=== PATIENT | female | born 1940 | race Caucasian/White ===

== ENCOUNTER 2021-03-18 11:35 | Inpatient (IN) | payer MEDICARE, SELFPAY ==
[2021-03-18 12:19] LABS: Hemoglobin 14.1 g/dL (12.0-16.0); Mean Corpuscular HGB CONC 33.6 g/dL (32.0-36.0); Mean Corpuscular Hemoglobin 30.5 pg (27.0-31.0); Mean Corpuscular Volume 90.9 fL (78.0-98.0); Mean Platelet Volume 7.2 fL (7.4-10.4); Platelet Count 189 thou/uL (130-400); RBC Distribution Width 12.2 % (11.5-14.5); Red Blood Cell (RBC) Count 4.61 mill/uL (4.20-5.40); White Blood Cell (WBC) Count 16.4 thou/uL (4.8-10.8)
[2021-03-18] MEDS ORDERED: Cefepime 2 GM VIAL ONE (12:25)
[2021-03-18 12:33] LABS: Band 21 % (5-11); Lymphocytes 3 % (21-51); MDiff Complete? YES; Monocytes 5 % (0-10); Neutrophil 70 % (42-75)
[2021-03-18 12:39] LABS: ALT (SGPT) 32 U/L (8-55); AST (SGOT) 81 U/L (5-34); Albumin 3.6 g/dL (3.4-4.8); Alkaline Phosphatase 60 U/L (40-110); Anion Gap 13 mmol/L (10-20); BUN (Urea Nitrogen) 16 mg/dL (9.8-20.1); Bilirubin, Total 1.2 mg/dL (0.2-1.2); Calc. Creatinine Clearance 0 mL/min (70-130); Carbon Dioxide 23 mmol/L (23-31); Chloride 100 mmol/L (98-107); Glucose 165 mg/dL (83-110); Potassium 3.3 mmol/L (3.5-5.1); Protein, Total 6.6 g/dL (5.8-8.1); Sodium 133 mmol/L (136-145)
[2021-03-18 12:56] LABS: Bacteria/HPF None Seen HPF (None Seen); Bilirubin Negative (Negative); Blood, Urine 2+ (Negative); Clarity Clear (Clear); Glucose, Urine (Dipstick) Normal (Negative); Ketone, Urine 20 mg/dL (Negative); Leukocyte Negative Leu/uL (Negative); Nitrite Negative (Negative); Protein, Urine (Dipstick) 100 mg/dL (Neg-Trace); RBC/HPF 0-3 HPF (0-3); Specific Gravity, Urine 1.032 (1.002-1.036); Squamous Epithelial 0-3 HPF (0-3); WBC/HPF 0-3 HPF (0-3); pH, Urine 5.5 (5.0-9.0)
[2021-03-18 13:14] LABS: CKMB 33.3 ng/mL (0-6.6)
[2021-03-18 13:35] LABS: SARS-CoV-2 NAA Rapid Test Not Detected (NotDetected)
[2021-03-18] MEDS ORDERED: Vancomycin 1 GM/200 ML BAG ONE ×2 (14:16→17:15)
[2021-03-18] MEDS ORDERED: Enoxaparin Sodium 30 MG/0.3 ML SYRINGE ONE (14:44)
[2021-03-18] MEDS ORDERED: Enoxaparin Sodium 100 MG/ML SYRINGE ONE (14:44)
[2021-03-18 15:36] LABS: Troponin I 18.342 ng/mL (< 0.028)
[2021-03-18] MEDS ORDERED: Potassium Chloride 20 MEQ TAB PO SCH (15:49)
[2021-03-18] MEDS ORDERED: Acetaminophen 650 MG Suppository PR PRN (15:49)
[2021-03-18] MEDS ORDERED: Acetaminophen 325 MG TAB PO PRN (15:49)
[2021-03-18] MEDS ORDERED: Vancomycin 1 GM in Premix Bag 1 BAG IVPB SCH ×2 (15:49→16:30)
[2021-03-18] MEDS ORDERED: Nitroglycerin 0.4 MG TAB (25 Tab Bottle) SL PRN (15:49)
[2021-03-18] MEDS ORDERED: Bisacodyl 5 MG TAB PO PRN (15:49)
[2021-03-18] MEDS ORDERED: Morphine 4 MG/ML VIAL SLOW IVP PRN (16:04)
[2021-03-18] MEDS ORDERED: Aspirin 325 mg Enteric Coated Tablet PO SCH (16:15)
[2021-03-18] MEDS ORDERED: Aspirin 325 MG TAB ONE (17:29)
[2021-03-18] MEDS ORDERED: Potassium Chloride 20 MEQ TAB ONE (17:29)
[2021-03-18 19:33] LABS: Critical Call Chem Troponin I RESULT DECREASING; Troponin I 14.908 ng/mL (< 0.028)
[2021-03-18 23:46] LABS: Amphetamine Not Detected (NotDetected); Barbiturates Screen Not Detected (NotDetected); Benzodiazepine Screen Not Detected (NotDetected); Cocaine Metabolite Screen Not Detected (NotDetected); Methadone Not Detected (NotDetected); Methamphetamine Not Detected (NotDetected); Opiate Screen Not Detected (NotDetected); Oxycodone Screen Not Detected (NotDetected); Phencyclidine (PCP) Not Detected (NotDetected); THC/Cannabinoid Screen Not Detected (NotDetected); Tricyclic Screen Not Detected (NotDetected)
[2021-03-19] MEDS: Cefepime 2 GM, Admixture Fee 1 EACH in Sodium Chloride 0.9% 100 ML IVPB SCH ×3 (00:28→23:37)
[2021-03-19 04:13] LABS: #Monocytes 0.8 thou/uL (0.11-0.59); #Neutrophils 8.7 thou/uL (1.40-6.50); %Basophils 0.4 % (0.0-1.0); %Eosinophils 0.2 % (0.0-10.0); %Lymphocytes 9.1 % (21.0-51.0); %Monocytes 7.2 % (0.0-10.0); %Neutrophils 83.1 % (42.0-75.0); Hemoglobin 14.1 g/dL (12.0-16.0); Mean Corpuscular HGB CONC 33.2 g/dL (32.0-36.0); Mean Corpuscular Hemoglobin 30.7 pg (27.0-31.0); Mean Corpuscular Volume 92.4 fL (78.0-98.0); Mean Platelet Volume 7.3 fL (7.4-10.4); Platelet Count 180 thou/uL (130-400); RBC Distribution Width 12.3 % (11.5-14.5); Red Blood Cell (RBC) Count 4.59 mill/uL (4.20-5.40); White Blood Cell (WBC) Count 10.5 thou/uL (4.8-10.8)
[2021-03-19 04:39] LABS: Anion Gap 10 mmol/L (10-20); BUN (Urea Nitrogen) 12 mg/dL (9.8-20.1); Calc. Creatinine Clearance 140 mL/min (70-130); Calcium 9.1 mg/dL (7.8-10.44); Carbon Dioxide 26 mmol/L (23-31); Cardiac Risk 4.2 (Less than 4.5); Chloride 104 mmol/L (98-107); Cholesterol 244 mg/dl (< 200 Desired); Glucose 99 mg/dL (83-110); HDL Cholesterol 58 mg/dL (>60 Neg Risk); LDL Cholesterol, Calculated 172 mg/dL; Potassium 3.6 mmol/L (3.5-5.1); Sodium 136 mmol/L (136-145); Triglycerides 69 mg/dL (Less than 150)
[2021-03-19] MEDS: Carvedilol 3.125 MG TAB PO SCH ×2 (08:48→17:49)
[2021-03-19] MEDS: Aspirin 325 mg Enteric Coated Tablet PO SCH (08:48)
[2021-03-19 09:29] LABS: Hemoglobin A1c 5.3 % (4.0-6.0)
[2021-03-19] MEDS ORDERED: Potassium Chloride 20 MEQ TAB PO SCH (09:45)
[2021-03-19] MEDS ORDERED: Furosemide 20 MG/2 ML VIAL SLOW IVP SCH (09:45)
[2021-03-19] MEDS ORDERED: Communication Order-Pharmacy FS SCH (10:00)
[2021-03-19] MEDS ORDERED: Digoxin 0.5 MG/2 ML AMP SLOW IVP SCH (16:45)
[2021-03-19] MEDS ORDERED: Diltiazem 125 MG in Sodium Chloride 0.9% 100 ML IVPB SCH (17:30)
[2021-03-19] MEDS: VANCOMYCIN 2 GRAM/400 ML BAG 2 GM in Premix Bag 1 BAG IVPB SCH (18:19)
[2021-03-19] MEDS: Atorvastatin Calcium 40 MG TAB PO SCH (22:11)
[2021-03-20] MEDS ORDERED: hydrOXYzine 25 MG TAB PO SCH (02:30)
[2021-03-20 04:59] LABS: #Basophils 0.1 thou/uL (0.0-0.2); #Eosinphils 0.2 thou/uL (0.0-0.7); #Lymphocytes 1.3 thou/uL (1.20-3.40); #Monocytes 0.8 thou/uL (0.11-0.59); #Neutrophils 6.1 thou/uL (1.40-6.50); %Basophils 0.8 % (0.0-1.0); %Eosinophils 2.1 % (0.0-10.0); %Lymphocytes 15.6 % (21.0-51.0); %Monocytes 9.6 % (0.0-10.0); %Neutrophils 71.9 % (42.0-75.0); Hemoglobin 14.2 g/dL (12.0-16.0); Mean Corpuscular HGB CONC 32.9 g/dL (32.0-36.0); Mean Corpuscular Hemoglobin 30.6 pg (27.0-31.0); Mean Corpuscular Volume 93.2 fL (78.0-98.0); Mean Platelet Volume 7.5 fL (7.4-10.4); Platelet Count 201 thou/uL (130-400); RBC Distribution Width 12.3 % (11.5-14.5); Red Blood Cell (RBC) Count 4.65 mill/uL (4.20-5.40); White Blood Cell (WBC) Count 8.5 thou/uL (4.8-10.8)
[2021-03-20 05:21] LABS: Anion Gap 13 mmol/L (10-20); BUN (Urea Nitrogen) 11 mg/dL (9.8-20.1); Calc. Creatinine Clearance 140 mL/min (70-130); Calcium 8.7 mg/dL (7.8-10.44); Carbon Dioxide 22 mmol/L (23-31); Chloride 104 mmol/L (98-107); Glucose 100 mg/dL (83-110); Magnesium 1.9 mg/dL (1.6-2.6); Potassium 3.6 mmol/L (3.5-5.1); Sodium 135 mmol/L (136-145)
[2021-03-20] MEDS: Carvedilol 3.125 MG TAB PO SCH ×2 (05:51→17:41)
[2021-03-20] MEDS: Aspirin 325 mg Enteric Coated Tablet PO SCH (05:51)
[2021-03-20] MEDS ORDERED: Sodium Chloride 0.9% 1,000 ML IV SCH ×2 (06:00→09:36)
[2021-03-20] MEDS ORDERED: Heparin 10,000 UNITS/ 10 ML VIAL ONE (07:40)
[2021-03-20] MEDS ORDERED: Midazolam HCl 2 mg/2 ml Vial ONE (08:41)
[2021-03-20] MEDS ORDERED: Fentanyl 100 MCG/2 ML VIAL ONE (08:41)
[2021-03-20] MEDS ORDERED: Protamine Sulfate 50 MG/5 ML VIAL ONE (09:06)
[2021-03-20] MEDS ORDERED: Iopamidol 370 76% 50 ML VIAL FS ONE (09:24)
[2021-03-20] MEDS ORDERED: Iopamidol 370 76% 100 ML VIAL ONE (09:24)
[2021-03-20] MEDS ORDERED: Sodium Chloride 0.9% 200 ML IV PRN (09:35)
[2021-03-20] MEDS ORDERED: Nitroglycerin 0.4 MG TAB (25 Tab Bottle) SL PRN (09:35)
[2021-03-20] MEDS ORDERED: Amiodarone 150 MG in Dextrose 5% in Water 100 ML IVPB SCH (09:45)
[2021-03-20] MEDS: Cefepime 2 GM, Admixture Fee 1 EACH in Sodium Chloride 0.9% 100 ML IVPB SCH ×2 (10:44→21:22)
[2021-03-20] MEDS: Amiodarone 450 MG in Dextrose 5% in Water 250 ML IVPB SCH ×2 (10:44→18:27)
[2021-03-20] MEDS: Acetaminophen/Codeine 30-300mg Tablet PO PRN (11:10)
[2021-03-20] MEDS ORDERED: Morphine 4 MG/ML VIAL SLOW IVP PRN (12:48)
[2021-03-20] MEDS ORDERED: Morphine 2 MG/ML VIAL SLOW IVP SCH (13:00)
[2021-03-20] MEDS ORDERED: Morphine 4 MG/ML VIAL SLOW IVP SCH (13:15)
[2021-03-20 16:31] LABS: Vancomycin, Trough 7.6 ug/mL
[2021-03-20] MEDS: VANCOMYCIN 2 GRAM/400 ML BAG 2 GM in Premix Bag 1 BAG IVPB SCH (17:41)
[2021-03-20] MEDS: Vancomycin 1.5 GRAM/300 ML BAG 1.5 GM in Premix Bag 1 BAG IVPB SCH (18:27)
[2021-03-20] MEDS: Atorvastatin Calcium 40 MG TAB PO SCH (21:24)
[2021-03-21] MEDS: Cefepime 2 GM, Admixture Fee 1 EACH in Sodium Chloride 0.9% 100 ML IVPB SCH ×3 (00:23→23:52)
[2021-03-21 05:00] LABS: Anion Gap 12 mmol/L (10-20); BUN (Urea Nitrogen) 11 mg/dL (9.8-20.1); Calc. Creatinine Clearance 129 mL/min (70-130); Calcium 8.6 mg/dL (7.8-10.44); Carbon Dioxide 24 mmol/L (23-31); Chloride 101 mmol/L (98-107); Glucose 107 mg/dL (83-110); Potassium 3.7 mmol/L (3.5-5.1); Sodium 133 mmol/L (136-145)
[2021-03-21] MEDS: Vancomycin 1.5 GRAM/300 ML BAG 1.5 GM in Premix Bag 1 BAG IVPB SCH ×2 (07:07→18:58)
[2021-03-21] MEDS: Aspirin 325 mg Enteric Coated Tablet PO SCH (08:46)
[2021-03-21] MEDS: Amiodarone 450 MG in Dextrose 5% in Water 250 ML IVPB SCH ×2 (08:46→23:23)
[2021-03-21] MEDS: Carvedilol 3.125 MG TAB PO SCH ×2 (08:46→17:15)
[2021-03-21] MEDS ORDERED: Furosemide 20 MG/2 ML VIAL SLOW IVP SCH (09:15)
[2021-03-21] MEDS ORDERED: Potassium Chloride 20 MEQ TAB PO SCH (09:15)
[2021-03-21] MEDS: Furosemide 20 MG/2 ML VIAL SLOW IVP SCH (15:12)
[2021-03-21] MEDS: Atorvastatin Calcium 40 MG TAB PO SCH (20:10)
[2021-03-21 23:14] LABS: Vancomycin, Trough 34.3 ug/mL
[2021-03-22] MEDS: Vancomycin 1.5 GRAM/300 ML BAG 1.5 GM in Premix Bag 1 BAG IVPB SCH ×3 (02:10→10:50)
[2021-03-22 05:38] LABS: ALT (SGPT) 57 U/L (8-55); AST (SGOT) 69 U/L (5-34); Albumin 2.6 g/dL (3.4-4.8); Alkaline Phosphatase 103 U/L (40-110); Anion Gap 14 mmol/L (10-20); BUN (Urea Nitrogen) 10 mg/dL (9.8-20.1); Bilirubin, Total 0.7 mg/dL (0.2-1.2); Calc. Creatinine Clearance 132 mL/min (70-130); Calcium 7.8 mg/dL (7.8-10.44); Carbon Dioxide 21 mmol/L (23-31); Chloride 103 mmol/L (98-107); Globulin 2.9 g/dL (2.4-3.5); Glucose 112 mg/dL (83-110); Potassium 3.9 mmol/L (3.5-5.1); Protein, Total 5.5 g/dL (5.8-8.1); Sodium 134 mmol/L (136-145)
[2021-03-22] MEDS: Furosemide 20 MG/2 ML VIAL SLOW IVP SCH (05:49)
[2021-03-22] MEDS ORDERED: Potassium Chloride 20 MEQ TAB PO SCH (08:30)
[2021-03-22] MEDS: Enoxaparin Sodium 100 MG/ML SYRINGE SC SCH ×2 (08:49→20:39)
[2021-03-22] MEDS: Amiodarone 200 MG TAB PO SCH ×3 (08:50→20:39)
[2021-03-22] MEDS: Carvedilol 3.125 MG TAB PO SCH ×2 (08:50→15:55)
[2021-03-22] MEDS: Aspirin 81 mg Enteric Coated Tablet PO SCH (08:50)
[2021-03-22] MEDS ORDERED: Furosemide 20 MG/2 ML VIAL SLOW IVP SCH (09:00)
[2021-03-22 10:11] LABS: #Basophils 0.1 thou/uL (0.0-0.2); #Eosinphils 0.2 thou/uL (0.0-0.7); #Lymphocytes 1.4 thou/uL (1.20-3.40); #Monocytes 1.2 thou/uL (0.11-0.59); #Neutrophils 9.6 thou/uL (1.40-6.50); %Basophils 0.5 % (0.0-1.0); %Eosinophils 1.7 % (0.0-10.0); %Lymphocytes 11.2 % (21.0-51.0); %Monocytes 9.3 % (0.0-10.0); %Neutrophils 77.3 % (42.0-75.0); Hemoglobin 13.9 g/dL (12.0-16.0); Mean Corpuscular HGB CONC 31.3 g/dL (32.0-36.0); Mean Corpuscular Hemoglobin 28.7 pg (27.0-31.0); Mean Corpuscular Volume 91.7 fL (78.0-98.0); Mean Platelet Volume 7.3 fL (7.4-10.4); Platelet Count 264 thou/uL (130-400); RBC Distribution Width 12.2 % (11.5-14.5); Red Blood Cell (RBC) Count 4.83 mill/uL (4.20-5.40); White Blood Cell (WBC) Count 12.4 thou/uL (4.8-10.8)
[2021-03-22 10:25] LABS: Vancomycin, Trough 27.9 ug/mL
[2021-03-22] MEDS: Cefepime 2 GM, Admixture Fee 1 EACH in Sodium Chloride 0.9% 100 ML IVPB SCH (12:55)
[2021-03-22] MEDS: Furosemide 40 MG/4 ML VIAL SLOW IVP SCH (15:53)
[2021-03-22] MEDS: Potassium Chloride 20 MEQ TAB PO SCH (15:55)
[2021-03-22] MEDS: VANCOMYCIN 1.25 GM/250 ML BAG 1.25 GM in Premix Bag 1 BAG IVPB SCH (17:41)
[2021-03-22] MEDS ORDERED: Vancomycin 1.5 GRAM/300 ML BAG 1.5 GM in Premix Bag 1 BAG IVPB SCH (18:00)
[2021-03-22] MEDS: Atorvastatin Calcium 40 MG TAB PO SCH (20:39)
[2021-03-23] MEDS: Cefepime 2 GM, Admixture Fee 1 EACH in Sodium Chloride 0.9% 100 ML IVPB SCH ×2 (00:08→11:47)
[2021-03-23 04:53] LABS: #Basophils 0.1 thou/uL (0.0-0.2); #Eosinphils 0.2 thou/uL (0.0-0.7); #Lymphocytes 1.7 thou/uL (1.20-3.40); #Monocytes 1.3 thou/uL (0.11-0.59); %Basophils 0.5 % (0.0-1.0); %Lymphocytes 13.8 % (21.0-51.0); %Monocytes 10.2 % (0.0-10.0); %Neutrophils 73.6 % (42.0-75.0); Hemoglobin 13.6 g/dL (12.0-16.0); Mean Corpuscular HGB CONC 33.7 g/dL (32.0-36.0); Mean Corpuscular Hemoglobin 30.6 pg (27.0-31.0); Mean Corpuscular Volume 90.8 fL (78.0-98.0); Mean Platelet Volume 7.3 fL (7.4-10.4); Platelet Count 292 thou/uL (130-400); RBC Distribution Width 12.1 % (11.5-14.5); Red Blood Cell (RBC) Count 4.43 mill/uL (4.20-5.40); White Blood Cell (WBC) Count 12.2 thou/uL (4.8-10.8)
[2021-03-23 05:23] LABS: Anion Gap 10 mmol/L (10-20); BUN (Urea Nitrogen) 11 mg/dL (9.8-20.1); Calc. Creatinine Clearance 132 mL/min (70-130); Calcium 9.1 mg/dL (7.8-10.44); Carbon Dioxide 30 mmol/L (23-31); Chloride 98 mmol/L (98-107); Glucose 109 mg/dL (83-110); Potassium 3.2 mmol/L (3.5-5.1); Sodium 135 mmol/L (136-145)
[2021-03-23] MEDS: Furosemide 40 MG/4 ML VIAL SLOW IVP SCH ×2 (05:42→15:44)
[2021-03-23] MEDS: VANCOMYCIN 1.25 GM/250 ML BAG 1.25 GM in Premix Bag 1 BAG IVPB SCH ×2 (05:42→17:47)
[2021-03-23] MEDS: Enoxaparin Sodium 100 MG/ML SYRINGE SC SCH ×2 (09:39→19:54)
[2021-03-23] MEDS: Carvedilol 3.125 MG TAB PO SCH ×2 (09:40→15:45)
[2021-03-23] MEDS: Aspirin 81 mg Enteric Coated Tablet PO SCH (09:40)
[2021-03-23] MEDS: Lisinopril 5 MG TAB PO SCH (09:40)
[2021-03-23] MEDS: Amiodarone 200 MG TAB PO SCH ×2 (09:40→19:49)
[2021-03-23] MEDS: Potassium Chloride 20 MEQ TAB PO SCH ×2 (09:40→15:45)
[2021-03-23] MEDS ORDERED: Potassium Bicarbonate/Cit Ac 20 MEQ TAB PO SCH (18:45)
[2021-03-23] MEDS: Acetaminophen/Codeine 30-300mg Tablet PO PRN (19:49)
[2021-03-23] MEDS: Atorvastatin Calcium 40 MG TAB PO SCH (19:50)
[2021-03-24] MEDS: Cefepime 2 GM, Admixture Fee 1 EACH in Sodium Chloride 0.9% 100 ML IVPB SCH (00:50)
[2021-03-24] MEDS: Acetaminophen/Codeine 30-300mg Tablet PO PRN (01:59)
[2021-03-24 05:05] LABS: #Eosinphils 0.3 thou/uL (0.0-0.7); #Lymphocytes 1.5 thou/uL (1.20-3.40); %Basophils 0.2 % (0.0-1.0); %Eosinophils 3.7 % (0.0-10.0); %Monocytes 11.3 % (0.0-10.0); %Neutrophils 67.8 % (42.0-75.0); Hemoglobin 12.5 g/dL (12.0-16.0); Mean Corpuscular Hemoglobin 29.1 pg (27.0-31.0); Mean Corpuscular Volume 91.1 fL (78.0-98.0); Mean Platelet Volume 6.8 fL (7.4-10.4); Platelet Count 317 thou/uL (130-400); RBC Distribution Width 12.1 % (11.5-14.5); White Blood Cell (WBC) Count 8.9 thou/uL (4.8-10.8)
[2021-03-24 05:15] LABS: Vancomycin, Trough 21.2 ug/mL
[2021-03-24 05:18] LABS: Anion Gap 14 mmol/L (10-20); BUN (Urea Nitrogen) 12 mg/dL (9.8-20.1); Calc. Creatinine Clearance 122 mL/min (70-130); Calcium 8.8 mg/dL (7.8-10.44); Carbon Dioxide 26 mmol/L (23-31); Chloride 96 mmol/L (98-107); Glucose 98 mg/dL (83-110); Potassium 3.3 mmol/L (3.5-5.1); Sodium 133 mmol/L (136-145)
[2021-03-24] MEDS: Furosemide 40 MG/4 ML VIAL SLOW IVP SCH ×2 (05:52→13:53)
[2021-03-24] MEDS ORDERED: Vancomycin 1 GM in Premix Bag 1 BAG IVPB SCH (06:00)
[2021-03-24] MEDS: Enoxaparin Sodium 100 MG/ML SYRINGE SC SCH ×2 (08:43→20:19)
[2021-03-24] MEDS: Aspirin 81 mg Enteric Coated Tablet PO SCH (08:44)
[2021-03-24] MEDS: Lisinopril 5 MG TAB PO SCH (08:44)
[2021-03-24] MEDS: Potassium Chloride 20 MEQ TAB PO SCH ×2 (08:44→16:16)
[2021-03-24] MEDS: Carvedilol 3.125 MG TAB PO SCH ×2 (08:44→16:16)
[2021-03-24] MEDS: Amiodarone 200 MG TAB PO SCH ×2 (08:44→20:19)
[2021-03-24] MEDS ORDERED: Potassium Bicarbonate/Cit Ac 20 MEQ TAB PO SCH (09:00)
[2021-03-24] MEDS: Atorvastatin Calcium 40 MG TAB PO SCH (20:19)
[2021-03-25 05:21] LABS: #Eosinphils 0.4 thou/uL (0.0-0.7); #Lymphocytes 1.5 thou/uL (1.20-3.40); #Monocytes 1.1 thou/uL (0.11-0.59); #Neutrophils 4.5 thou/uL (1.40-6.50); %Basophils 0.4 % (0.0-1.0); %Eosinophils 4.8 % (0.0-10.0); %Lymphocytes 19.5 % (21.0-51.0); %Monocytes 14.1 % (0.0-10.0); %Neutrophils 61.2 % (42.0-75.0); Hemoglobin 13.2 g/dL (12.0-16.0); Mean Corpuscular HGB CONC 32.4 g/dL (32.0-36.0); Mean Corpuscular Hemoglobin 29.6 pg (27.0-31.0); Mean Corpuscular Volume 91.4 fL (78.0-98.0); Platelet Count 358 thou/uL (130-400); RBC Distribution Width 12.1 % (11.5-14.5); Red Blood Cell (RBC) Count 4.44 mill/uL (4.20-5.40); White Blood Cell (WBC) Count 7.4 thou/uL (4.8-10.8)
[2021-03-25 05:40] LABS: Anion Gap 13 mmol/L (10-20); BUN (Urea Nitrogen) 13 mg/dL (9.8-20.1); Calc. Creatinine Clearance 104 mL/min (70-130); Calcium 8.9 mg/dL (7.8-10.44); Carbon Dioxide 31 mmol/L (23-31); Chloride 94 mmol/L (98-107); Glucose 99 mg/dL (83-110); Potassium 4.1 mmol/L (3.5-5.1); Sodium 134 mmol/L (136-145)
[2021-03-25] MEDS: Furosemide 40 MG/4 ML VIAL SLOW IVP SCH ×2 (06:16→15:43)
[2021-03-25] MEDS: Potassium Chloride 20 MEQ TAB PO SCH ×2 (08:41→17:39)
[2021-03-25] MEDS: Aspirin 81 mg Enteric Coated Tablet PO SCH (08:41)
[2021-03-25] MEDS: Amiodarone 200 MG TAB PO SCH ×2 (08:42→19:54)
[2021-03-25] MEDS: Carvedilol 3.125 MG TAB PO SCH ×2 (08:42→17:38)
[2021-03-25] MEDS: Apixaban 5 MG TAB PO SCH ×2 (08:42→19:53)
[2021-03-25] MEDS: Lisinopril 5 MG TAB PO SCH (08:42)
[2021-03-25] MEDS: Acetaminophen/Codeine 30-300mg Tablet PO PRN ×2 (12:55→19:51)
[2021-03-25] MEDS: Atorvastatin Calcium 40 MG TAB PO SCH (19:53)
[2021-03-25] MEDS: Doxycycline 100 MG CAP PO SCH (22:40)
[2021-03-26 04:52] LABS: #Eosinphils 0.3 thou/uL (0.0-0.7); #Lymphocytes 1.3 thou/uL (1.20-3.40); #Monocytes 1.1 thou/uL (0.11-0.59); #Neutrophils 5.5 thou/uL (1.40-6.50); %Basophils 0.6 % (0.0-1.0); %Lymphocytes 15.5 % (21.0-51.0); %Monocytes 13.7 % (0.0-10.0); %Neutrophils 66.3 % (42.0-75.0); Hemoglobin 13.4 g/dL (12.0-16.0); Mean Corpuscular HGB CONC 31.9 g/dL (32.0-36.0); Mean Corpuscular Hemoglobin 29.5 pg (27.0-31.0); Mean Corpuscular Volume 92.4 fL (78.0-98.0); Mean Platelet Volume 6.8 fL (7.4-10.4); Platelet Count 355 thou/uL (130-400); RBC Distribution Width 12.1 % (11.5-14.5); Red Blood Cell (RBC) Count 4.53 mill/uL (4.20-5.40); White Blood Cell (WBC) Count 8.2 thou/uL (4.8-10.8)
[2021-03-26 05:12] LABS: Anion Gap 15 mmol/L (10-20); BUN (Urea Nitrogen) 17 mg/dL (9.8-20.1); Calc. Creatinine Clearance 98 mL/min (70-130); Calcium 9.1 mg/dL (7.8-10.44); Carbon Dioxide 29 mmol/L (23-31); Chloride 94 mmol/L (98-107); Glucose 95 mg/dL (83-110); Potassium 3.9 mmol/L (3.5-5.1); Sodium 134 mmol/L (136-145)
[2021-03-26] MEDS: Furosemide 40 MG/4 ML VIAL SLOW IVP SCH (05:26)
[2021-03-26] MEDS: Amiodarone 200 MG TAB PO SCH ×2 (10:03→21:34)
[2021-03-26] MEDS: Apixaban 5 MG TAB PO SCH ×2 (10:03→21:34)
[2021-03-26] MEDS: Ondansetron PF 4 MG/2 ML Vial IVP PRN ×2 (10:03→22:14)
[2021-03-26] MEDS: Lisinopril 5 MG TAB PO SCH (10:04)
[2021-03-26] MEDS: Potassium Chloride 20 MEQ TAB PO SCH ×2 (10:04→18:30)
[2021-03-26] MEDS: Carvedilol 3.125 MG TAB PO SCH ×2 (10:04→18:30)
[2021-03-26] MEDS: Aspirin 81 mg Enteric Coated Tablet PO SCH (10:04)
[2021-03-26] MEDS: Doxycycline 100 MG CAP PO SCH (10:05)
[2021-03-26 15:29] LABS: Lactic Acid 1.1 mmol/L (0.5-2.2)
[2021-03-26 15:36] LABS: Troponin I 0.224 ng/mL (< 0.028)
[2021-03-26] MEDS: Furosemide 40 MG TAB PO SCH (16:18)
[2021-03-26] MEDS: Cefepime 2 GM in Sodium Chloride 0.9% 100 ML IVPB SCH (18:30)
[2021-03-26] MEDS ORDERED: Polyethylene Glycol 3350 17 GM Packet PO SCH (19:30)
[2021-03-26] MEDS: Atorvastatin Calcium 40 MG TAB PO SCH (21:34)
[2021-03-26] MEDS: Vancomycin 1 GM in Premix Bag 1 BAG IVPB SCH (21:35)
[2021-03-27] MEDS: Cefepime 2 GM in Sodium Chloride 0.9% 100 ML IVPB SCH ×2 (05:24→17:41)
[2021-03-27] MEDS: Acetaminophen/Codeine 30-300mg Tablet PO PRN ×2 (05:46→20:40)
[2021-03-27] MEDS: Vancomycin 1 GM in Premix Bag 1 BAG IVPB SCH ×2 (05:47→18:18)
[2021-03-27 07:21] LABS: #Eosinphils 0.3 thou/uL (0.0-0.7); #Lymphocytes 1.1 thou/uL (1.20-3.40); #Monocytes 1.2 thou/uL (0.11-0.59); #Neutrophils 10.2 thou/uL (1.40-6.50); %Basophils 0.2 % (0.0-1.0); %Eosinophils 2.5 % (0.0-10.0); %Lymphocytes 8.2 % (21.0-51.0); %Monocytes 9.4 % (0.0-10.0); %Neutrophils 79.7 % (42.0-75.0); Hemoglobin 14.1 g/dL (12.0-16.0); Mean Corpuscular HGB CONC 32.6 g/dL (32.0-36.0); Mean Corpuscular Volume 92.2 fL (78.0-98.0); Mean Platelet Volume 6.9 fL (7.4-10.4); Platelet Count 378 thou/uL (130-400); RBC Distribution Width 12.4 % (11.5-14.5); Red Blood Cell (RBC) Count 4.71 mill/uL (4.20-5.40); White Blood Cell (WBC) Count 12.8 thou/uL (4.8-10.8)
[2021-03-27 07:41] LABS: Lactic Acid 1.3 mmol/L (0.5-2.2)
[2021-03-27 07:45] LABS: Anion Gap 16 mmol/L (10-20); BUN (Urea Nitrogen) 25 mg/dL (9.8-20.1); Calc. Creatinine Clearance 70 mL/min (70-130); Calcium 9.7 mg/dL (7.8-10.44); Carbon Dioxide 27 mmol/L (23-31); Chloride 93 mmol/L (98-107); Glucose 117 mg/dL (83-110); Potassium 4.9 mmol/L (3.5-5.1); Sodium 131 mmol/L (136-145)
[2021-03-27] MEDS: Furosemide 40 MG TAB PO SCH (08:41)
[2021-03-27] MEDS: Amiodarone 200 MG TAB PO SCH ×2 (08:41→20:41)
[2021-03-27] MEDS: Aspirin 81 mg Enteric Coated Tablet PO SCH (08:41)
[2021-03-27] MEDS: Carvedilol 3.125 MG TAB PO SCH ×2 (08:41→17:41)
[2021-03-27] MEDS: Potassium Chloride 20 MEQ TAB PO SCH ×2 (08:41→17:41)
[2021-03-27] MEDS: Apixaban 5 MG TAB PO SCH ×2 (08:41→20:41)
[2021-03-27] MEDS: Lisinopril 5 MG TAB PO SCH (08:42)
[2021-03-27] MEDS: Polyethylene Glycol 3350 17 GM Packet PO SCH ×2 (08:42→15:21)
[2021-03-27] MEDS ORDERED: Lactated Ringer's 1,000 ML IV SCH (10:30)
[2021-03-27 12:07] LABS: RBC/HPF 0-3 HPF (0-3)
[2021-03-27 12:08] LABS: Bacteria/HPF 1+ HPF (None Seen)
[2021-03-27 14:40] LABS: SARS-CoV-2 PCR by NAA Not Detected (NotDetected)
[2021-03-27 14:46] LABS: Bilirubin Small (Negative); Blood, Urine Negative (Negative); Glucose, Urine (Dipstick) Negative (Negative); Ketone, Urine Negative (Negative); Leukocyte Negative (Negative); Nitrite Negative (Negative); Protein, Urine (Dipstick) Trace mg/dL (Neg-Trace)
[2021-03-27 14:54] LABS: Clarity Cloudy (Clear); Specific Gravity, Urine 1.024 (1.002-1.036)
[2021-03-27] MEDS: Atorvastatin Calcium 40 MG TAB PO SCH (20:41)
[2021-03-27] MEDS: Clindamycin/D5W 600 MG in Premix Bag 1 BAG IVPB SCH (22:24)
[2021-03-28 04:41] LABS: #Eosinphils 0.6 thou/uL (0.0-0.7); #Lymphocytes 1.5 thou/uL (1.20-3.40); #Monocytes 1.3 thou/uL (0.11-0.59); #Neutrophils 10.3 thou/uL (1.40-6.50); %Basophils 0.2 % (0.0-1.0); %Eosinophils 4.7 % (0.0-10.0); %Lymphocytes 10.6 % (21.0-51.0); %Monocytes 9.4 % (0.0-10.0); %Neutrophils 75.2 % (42.0-75.0); Hemoglobin 12.6 g/dL (12.0-16.0); Mean Corpuscular HGB CONC 32.4 g/dL (32.0-36.0); Mean Corpuscular Volume 92.7 fL (78.0-98.0); Mean Platelet Volume 6.6 fL (7.4-10.4); Platelet Count 340 thou/uL (130-400); RBC Distribution Width 12.4 % (11.5-14.5); Red Blood Cell (RBC) Count 4.21 mill/uL (4.20-5.40); White Blood Cell (WBC) Count 13.7 thou/uL (4.8-10.8)
[2021-03-28 05:09] LABS: Anion Gap 15 mmol/L (10-20); BUN (Urea Nitrogen) 31 mg/dL (9.8-20.1); Calc. Creatinine Clearance 57 mL/min (70-130); Calcium 9.2 mg/dL (7.8-10.44); Carbon Dioxide 26 mmol/L (23-31); Chloride 93 mmol/L (98-107); Glucose 92 mg/dL (83-110); Sodium 129 mmol/L (136-145)
[2021-03-28] MEDS: Cefepime 2 GM in Sodium Chloride 0.9% 100 ML IVPB SCH ×2 (05:27→16:47)
[2021-03-28 05:34] LABS: Vancomycin, Trough 26.3 ug/mL
[2021-03-28] MEDS ORDERED: Sodium Chloride 0.9% 500 ML IV SCH (05:45)
[2021-03-28] MEDS: Clindamycin/D5W 600 MG in Premix Bag 1 BAG IVPB SCH ×3 (06:03→20:48)
[2021-03-28] MEDS: Aspirin 81 mg Enteric Coated Tablet PO SCH (09:28)
[2021-03-28] MEDS: Polyethylene Glycol 3350 17 GM Packet PO SCH (09:28)
[2021-03-28] MEDS: Potassium Chloride 20 MEQ TAB PO SCH (09:28)
[2021-03-28] MEDS: Carvedilol 3.125 MG TAB PO SCH ×3 (09:29→16:49)
[2021-03-28] MEDS: Amiodarone 200 MG TAB PO SCH ×2 (09:29→20:49)
[2021-03-28] MEDS: Apixaban 5 MG TAB PO SCH ×2 (09:29→20:49)
[2021-03-28 16:00] LABS: Anion Gap 12 mmol/L (10-20); BUN (Urea Nitrogen) 33 mg/dL (9.8-20.1); CK (CPK) 270 U/L (29-168); Calc. Creatinine Clearance 59 mL/min (70-130); Calcium 8.9 mg/dL (7.8-10.44); Carbon Dioxide 28 mmol/L (23-31); Chloride 94 mmol/L (98-107); Glucose 117 mg/dL (83-110); Potassium 5.3 mmol/L (3.5-5.1); Sodium 129 mmol/L (136-145)
[2021-03-28] MEDS: Albumin 25% 25 GM/100 ML BOT IVPB SCH ×2 (16:17→23:40)
[2021-03-28] MEDS ORDERED: VANCOMYCIN 1.75 GM/350 ML BAG 1.75 GM in Premix Bag 1 BAG IVPB SCH (18:00)
[2021-03-28] MEDS: Atorvastatin Calcium 40 MG TAB PO SCH (20:48)
[2021-03-28] MEDS: Ketoconazole 2% Cream 15 gm Tube TOP SCH (20:48)
[2021-03-28] MEDS: Senokot S 8.6-50 MG TAB PO SCH (20:49)
[2021-03-28] MEDS ORDERED: Polyethylene Glycol 3350 17 GM Packet PO SCH (21:00)
[2021-03-29] MEDS: Acetaminophen/Codeine 30-300mg Tablet PO PRN (03:16)
[2021-03-29 04:45] LABS: #Eosinphils 0.5 thou/uL (0.0-0.7); #Monocytes 1.1 thou/uL (0.11-0.59); #Neutrophils 11.2 thou/uL (1.40-6.50); %Basophils 0.1 % (0.0-1.0); %Lymphocytes 7.2 % (21.0-51.0); %Monocytes 7.9 % (0.0-10.0); %Neutrophils 80.8 % (42.0-75.0); Hemoglobin 11.1 g/dL (12.0-16.0); Mean Corpuscular HGB CONC 31.4 g/dL (32.0-36.0); Mean Corpuscular Hemoglobin 28.8 pg (27.0-31.0); Mean Corpuscular Volume 91.7 fL (78.0-98.0); Mean Platelet Volume 6.5 fL (7.4-10.4); Platelet Count 358 thou/uL (130-400); RBC Distribution Width 12.1 % (11.5-14.5); Red Blood Cell (RBC) Count 3.86 mill/uL (4.20-5.40); White Blood Cell (WBC) Count 13.9 thou/uL (4.8-10.8)
[2021-03-29 05:04] LABS: Anion Gap 14 mmol/L (10-20); BUN (Urea Nitrogen) 32 mg/dL (9.8-20.1); Calc. Creatinine Clearance 60 mL/min (70-130); Calcium 9.4 mg/dL (7.8-10.44); Carbon Dioxide 27 mmol/L (23-31); Chloride 94 mmol/L (98-107); Glucose 105 mg/dL (83-110); Potassium 4.9 mmol/L (3.5-5.1); Sodium 130 mmol/L (136-145)
[2021-03-29] MEDS: Cefepime 2 GM in Sodium Chloride 0.9% 100 ML IVPB SCH (05:45)
[2021-03-29] MEDS: Clindamycin/D5W 600 MG in Premix Bag 1 BAG IVPB SCH ×3 (06:31→22:06)
[2021-03-29] MEDS: Carvedilol 3.125 MG TAB PO SCH ×2 (08:33→17:13)
[2021-03-29] MEDS: Aspirin 81 mg Enteric Coated Tablet PO SCH (08:33)
[2021-03-29] MEDS: Amiodarone 200 MG TAB PO SCH ×2 (08:33→21:08)
[2021-03-29] MEDS: Bisacodyl 5 MG TAB PO SCH (08:34)
[2021-03-29] MEDS: Apixaban 5 MG TAB PO SCH ×2 (08:34→21:09)
[2021-03-29] MEDS: Senokot S 8.6-50 MG TAB PO SCH ×2 (08:34→21:09)
[2021-03-29] MEDS: Ketoconazole 2% Cream 15 gm Tube TOP SCH ×2 (08:35→21:11)
[2021-03-29] MEDS: Albumin 25% 25 GM/100 ML BOT IVPB SCH ×2 (13:17→17:54)
[2021-03-29 15:42] LABS: Creatinine, Urine 123.34 mg/dL (47-110)
[2021-03-29] MEDS: cefTRIAXone\\ROCEPHIN 2 GM in Sodium Chloride 0.9% 100 ML IVPB SCH (17:13)
[2021-03-29] MEDS: Atorvastatin Calcium 40 MG TAB PO SCH (21:09)
[2021-03-30] MEDS: Albumin 25% 25 GM/100 ML BOT IVPB SCH (00:11)
[2021-03-30] MEDS: Ondansetron PF 4 MG/2 ML Vial IVP PRN (03:08)
[2021-03-30] MEDS: Acetaminophen/Codeine 30-300mg Tablet PO PRN (03:08)
[2021-03-30 04:49] LABS: #Eosinphils 0.4 thou/uL (0.0-0.7); #Lymphocytes 1.2 thou/uL (1.20-3.40); #Monocytes 1.1 thou/uL (0.11-0.59); %Basophils 0.2 % (0.0-1.0); %Eosinophils 3.3 % (0.0-10.0); %Lymphocytes 9.6 % (21.0-51.0); %Monocytes 8.9 % (0.0-10.0); %Neutrophils 78.1 % (42.0-75.0); Hemoglobin 11.8 g/dL (12.0-16.0); Mean Corpuscular HGB CONC 33.2 g/dL (32.0-36.0); Mean Corpuscular Hemoglobin 29.9 pg (27.0-31.0); Mean Corpuscular Volume 90.2 fL (78.0-98.0); Mean Platelet Volume 6.5 fL (7.4-10.4); Platelet Count 349 thou/uL (130-400); RBC Distribution Width 12.1 % (11.5-14.5); Red Blood Cell (RBC) Count 3.95 mill/uL (4.20-5.40); White Blood Cell (WBC) Count 12.8 thou/uL (4.8-10.8)
[2021-03-30 05:04] LABS: Anion Gap 16 mmol/L (10-20); BUN (Urea Nitrogen) 35 mg/dL (9.8-20.1); Calc. Creatinine Clearance 61 mL/min (70-130); Calcium 9.4 mg/dL (7.8-10.44); Carbon Dioxide 22 mmol/L (23-31); Chloride 96 mmol/L (98-107); Glucose 97 mg/dL (83-110); Sodium 129 mmol/L (136-145)
[2021-03-30] MEDS: Clindamycin/D5W 600 MG in Premix Bag 1 BAG IVPB SCH ×3 (06:14→21:44)
[2021-03-30] MEDS ORDERED: Bisacodyl 10 MG SUPP PR PRN (06:36)
[2021-03-30] MEDS ORDERED: Sodium Chloride 0.9% 1,000 ML IV SCH (06:45)
[2021-03-30] MEDS: Sodium Chloride 0.9% 1,000 ML IV SCH ×2 (07:23→23:05)
[2021-03-30] MEDS: Apixaban 5 MG TAB PO SCH ×2 (10:02→21:41)
[2021-03-30] MEDS: Amiodarone 200 MG TAB PO SCH ×2 (10:02→21:41)
[2021-03-30] MEDS: Aspirin 81 mg Enteric Coated Tablet PO SCH (10:02)
[2021-03-30] MEDS: Carvedilol 3.125 MG TAB PO SCH ×2 (10:02→16:33)
[2021-03-30] MEDS: Ketoconazole 2% Cream 15 gm Tube TOP SCH ×2 (10:03→22:01)
[2021-03-30] MEDS: Bisacodyl 5 MG TAB PO SCH (10:04)
[2021-03-30] MEDS: Senokot S 8.6-50 MG TAB PO SCH ×2 (10:04→21:43)
[2021-03-30] MEDS: cefTRIAXone\\ROCEPHIN 2 GM in Sodium Chloride 0.9% 100 ML IVPB SCH (16:33)
[2021-03-30] MEDS: Atorvastatin Calcium 40 MG TAB PO SCH (21:41)
[2021-03-31] MEDS: Clindamycin/D5W 600 MG in Premix Bag 1 BAG IVPB SCH ×3 (05:32→21:28)
[2021-03-31 07:46] LABS: Anion Gap 15 mmol/L (10-20); BUN (Urea Nitrogen) 37 mg/dL (9.8-20.1); Calc. Creatinine Clearance 64 mL/min (70-130); Calcium 9.5 mg/dL (7.8-10.44); Carbon Dioxide 23 mmol/L (23-31); Chloride 98 mmol/L (98-107); Glucose 105 mg/dL (83-110); Potassium 5.4 mmol/L (3.5-5.1); Sodium 131 mmol/L (136-145)
[2021-03-31] MEDS: Apixaban 5 MG TAB PO SCH ×2 (09:52→21:27)
[2021-03-31] MEDS: Aspirin 81 mg Enteric Coated Tablet PO SCH (09:52)
[2021-03-31] MEDS: Amiodarone 200 MG TAB PO SCH ×2 (09:52→21:28)
[2021-03-31] MEDS: Bisacodyl 5 MG TAB PO SCH (09:53)
[2021-03-31] MEDS: Ketoconazole 2% Cream 15 gm Tube TOP SCH ×2 (09:53→21:31)
[2021-03-31] MEDS: Carvedilol 3.125 MG TAB PO SCH ×2 (09:53→17:29)
[2021-03-31] MEDS: Senokot S 8.6-50 MG TAB PO SCH ×2 (09:58→21:28)
[2021-03-31] MEDS: Bisacodyl 10 MG SUPP PR SCH ×2 (09:59→10:14)
[2021-03-31] MEDS: Ondansetron PF 4 MG/2 ML Vial IVP PRN (10:14)
[2021-03-31] MEDS ORDERED: cefTRIAXone\\ROCEPHIN 1 GM in Sodium Chloride 0.9% 100 ML IVPB SCH (18:00)
[2021-03-31] MEDS: Atorvastatin Calcium 40 MG TAB PO SCH (21:27)
[2021-03-31] MEDS: Sodium Chloride 0.9% 1,000 ML IV SCH (22:53)
[2021-04-01 05:40] LABS: Albumin 2.9 g/dL (3.4-4.8); Anion Gap 14 mmol/L (10-20); BUN (Urea Nitrogen) 35 mg/dL (9.8-20.1); BUN/Creatinine Ratio 26.32; Calc. Creatinine Clearance 71 mL/min (70-130); Calcium 9.1 mg/dL (7.8-10.44); Carbon Dioxide 23 mmol/L (23-31); Chloride 100 mmol/L (98-107); Glucose 94 mg/dL (83-110); Phosphorus 3.4 mg/dL (2.3-4.7); Potassium 4.2 mmol/L (3.5-5.1); Sodium 133 mmol/L (136-145)
[2021-04-01] MEDS: Clindamycin/D5W 600 MG in Premix Bag 1 BAG IVPB SCH (05:46)
[2021-04-01] MEDS: Amiodarone 200 MG TAB PO SCH ×2 (08:45→22:06)
[2021-04-01] MEDS: Senokot S 8.6-50 MG TAB PO SCH ×2 (08:45→22:06)
[2021-04-01] MEDS: Bisacodyl 5 MG TAB PO SCH (08:45)
[2021-04-01] MEDS: Apixaban 5 MG TAB PO SCH ×2 (08:45→22:06)
[2021-04-01] MEDS: Carvedilol 3.125 MG TAB PO SCH ×2 (08:45→17:59)
[2021-04-01] MEDS: Aspirin 81 mg Enteric Coated Tablet PO SCH (08:45)
[2021-04-01] MEDS: Ketoconazole 2% Cream 15 gm Tube TOP SCH ×2 (08:46→22:06)
[2021-04-01] MEDS ORDERED: Mineral Oil ENEMA PR SCH (11:45)
[2021-04-01] MEDS ORDERED: Fleet Enema 133 ML BOT PR SCH (17:45)
[2021-04-01] MEDS: Atorvastatin Calcium 40 MG TAB PO SCH (22:05)
[2021-04-02 05:15] LABS: Albumin 2.8 g/dL (3.4-4.8); Anion Gap 17 mmol/L (10-20); BUN (Urea Nitrogen) 33 mg/dL (9.8-20.1); Calc. Creatinine Clearance 75 mL/min (70-130); Calcium 9.6 mg/dL (7.8-10.44); Carbon Dioxide 22 mmol/L (23-31); Chloride 101 mmol/L (98-107); Glucose 95 mg/dL (83-110); Phosphorus 3.5 mg/dL (2.3-4.7); Potassium 4.3 mmol/L (3.5-5.1); Sodium 136 mmol/L (136-145)
[2021-04-02] MEDS: Amiodarone 200 MG TAB PO SCH ×2 (10:22→21:40)
[2021-04-02] MEDS: Aspirin 81 mg Enteric Coated Tablet PO SCH (10:22)
[2021-04-02] MEDS: Apixaban 5 MG TAB PO SCH ×2 (10:22→21:42)
[2021-04-02] MEDS: Bisacodyl 5 MG TAB PO SCH (10:22)
[2021-04-02] MEDS: Carvedilol 3.125 MG TAB PO SCH ×2 (10:23→17:51)
[2021-04-02] MEDS: Senokot S 8.6-50 MG TAB PO SCH ×2 (10:24→21:40)
[2021-04-02] MEDS: Ketoconazole 2% Cream 15 gm Tube TOP SCH ×2 (10:30→21:42)
[2021-04-02 15:11] VITALS: BMI 46.4
[2021-04-02 20:28] VITALS: BP 139/65; TEMP 98.3
[2021-04-02] MEDS: Atorvastatin Calcium 40 MG TAB PO SCH (21:40)
[2021-04-06] MEDS ORDERED: Amiodarone 200 MG TAB PO SCH (09:00)
[2021-04-20] MEDS ORDERED: Amiodarone 200 MG TAB PO SCH (09:00)
== END 2021-04-02 22:21 | DRG 280 ==
LOC: ERS 11:35 → ERHOLD 14:21 → 2NO 19:49
PROVIDERS: ADMIT Internal Medicine; ATTEND Internal Medicine
PROC: 4A023N7 Measurement of Cardiac Sampling and Pressure, Left Heart, Percutaneous Approach (ICD-10-PCS; principal; 2021-03-20)
PROC: B2151ZZ Fluoroscopy of Left Heart using Low Osmolar Contrast (ICD-10-PCS; 2021-03-20)
PROC: B2111ZZ Fluoroscopy of Multiple Coronary Arteries using Low Osmolar Contrast (ICD-10-PCS; 2021-03-20)
DX: I21.4 Non-ST elevation (NSTEMI) myocardial infarction (principal); A41.9 Sepsis, unspecified organism; E87.1 Hypo-osmolality and hyponatremia; M62.82 Rhabdomyolysis; L03.116 Cellulitis of left lower limb; I47.2 Ventricular tachycardia; Z68.42 Body mass index [BMI] 45.0-49.9, adult; N17.9 Acute kidney failure, unspecified; I50.42 Chronic combined systolic (congestive) and diastolic (congestive) heart failure; Z20.822 Contact with and (suspected) exposure to COVID-19; E87.6 Hypokalemia; E66.01 Morbid (severe) obesity due to excess calories; I11.0 Hypertensive heart disease with heart failure; E11.9 Type 2 diabetes mellitus without complications; I48.91 Unspecified atrial fibrillation; I25.10 Atherosclerotic heart disease of native coronary artery without angina pectoris; I89.0 Lymphedema, not elsewhere classified; I25.5 Ischemic cardiomyopathy; K59.00 Constipation, unspecified; B37.2 Candidiasis of skin and nail; Z90.09 Acquired absence of other part of head and neck; Z79.899 Other long term (current) drug therapy; Z88.0 Allergy status to penicillin
CPT/HCPCS: 0240U; 36415; 36416; 51701; 71045; 74018; 76770; 80048; 80053; 80061; 80069; 80202; 80306; 81003; 81015; 82040; 82550; 82553; 82570; 83036; 83605; 83735; 83880; 84156; 84300; 84443; 84484; 84540; 85025; 85347; 87040; 87086; 87633; 93005; 93010; 93306; 93458; 93798; 96365; 96367; 96372; 99152; J0282; J0692; J0696; J1160; J1644; J1650; J1940; J1956; J2250; J2270; J2405; J2720; J3010; J3370; J3490; J7030; J7050; J7070; P9047; Q9967; U0003; U0005

== ENCOUNTER 2021-09-19 14:36 | Outpatient (CLI) | payer MEDICARE | END 2021-09-19 14:37 | disposition home or self-care (01) | LOC: BICRAD 14:36 | PROVIDERS: ATTEND Internal Medicine Cardiovascular Disease | DX: I48.0 Paroxysmal atrial fibrillation (principal); I51.7 Cardiomegaly | CPT/HCPCS: 71046 ==

== ENCOUNTER 2022-05-22 15:10 | Inpatient (IN) | payer MEDICARE ==
[2022-05-22 16:38] LABS: #Eosinphils 0.3 thou/uL (0.0-0.7); #Lymphocytes 1.5 thou/uL (1.20-3.40); #Monocytes 0.6 thou/uL (0.11-0.59); #Neutrophils 5.4 thou/uL (1.40-6.50); %Basophils 0.2 % (0.0-1.0); %Eosinophils 4.5 % (0.0-10.0); %Lymphocytes 19.1 % (21.0-51.0); %Monocytes 7.3 % (0.0-10.0); Hemoglobin 12.5 g/dL (12.0-16.0); Mean Corpuscular HGB CONC 32.2 g/dL (32.0-36.0); Mean Corpuscular Volume 93.1 fl (78.0-98.0); Mean Platelet Volume 7.3 fL (7.4-10.4); Platelet Count 286 10x3/uL (130-400); RBC Distribution Width 13.1 % (11.5-14.5); Red Blood Cell (RBC) Count 4.17 mill/uL (4.20-5.40); White Blood Cell (WBC) Count 7.8 10x3/uL (4.8-10.8)
[2022-05-22 17:15] LABS: Albumin 3.7 g/dL (3.4-4.8); Alkaline Phosphatase 84 U/L (40-110); Anion Gap 21 mmol/L (10-20); BUN (Urea Nitrogen) 38 mg/dL (9.8-20.1); Bilirubin, Total 0.8 mg/dL (0.2-1.2); Calc. Creatinine Clearance 0 mL/min (70-130); Calcium 9.7 mg/dL (7.8-10.44); Carbon Dioxide 21 mmol/L (23-31); Chloride 101 mmol/L (98-107); Estimated GFR 35; Globulin 3.8 g/dL (2.4-3.5); Glucose 94 mg/dL (83-110); Potassium 3.8 mmol/L (3.5-5.1); Protein, Total 7.5 g/dL (5.8-8.1); Sodium 139 mmol/L (136-145)
[2022-05-22 17:16] LABS: ALT (SGPT) 19 U/L (8-55); AST (SGOT) 24 U/L (5-34)
[2022-05-22] MEDS ORDERED: Ondansetron PF 4 MG/2 ML Vial IVP PRN (18:47)
[2022-05-22 21:07] VITALS: BMI 48.8
[2022-05-22] MEDS: Apixaban 2.5 MG TAB PO SCH (22:15)
[2022-05-22] MEDS: Acetaminophen 325 MG TAB PO PRN (22:15)
[2022-05-22] MEDS: traMADol HCl 50 MG TAB PO PRN (22:15)
[2022-05-23] MEDS ORDERED: Morphine 2 MG/ML VIAL SLOW IVP SCH ×2 (01:15→04:30)
[2022-05-23 05:04] LABS: #Eosinphils 0.4 thou/uL (0.0-0.7); #Monocytes 0.6 thou/uL (0.11-0.59); #Neutrophils 4.8 thou/uL (1.40-6.50); %Basophils 0.5 % (0.0-1.0); %Eosinophils 4.8 % (0.0-10.0); %Lymphocytes 25.5 % (21.0-51.0); %Neutrophils 61.2 % (42.0-75.0); Mean Corpuscular HGB CONC 32.1 g/dL (32.0-36.0); Mean Corpuscular Volume 93.4 fl (78.0-98.0); Mean Platelet Volume 7.5 fL (7.4-10.4); Platelet Count 309 10x3/uL (130-400); RBC Distribution Width 13.2 % (11.5-14.5); White Blood Cell (WBC) Count 7.8 10x3/uL (4.8-10.8)
[2022-05-23 05:35] LABS: Anion Gap 15 mmol/L (10-20); BUN (Urea Nitrogen) 38 mg/dL (9.8-20.1); Calc. Creatinine Clearance 66 mL/min (70-130); Calcium 9.6 mg/dL (7.8-10.44); Carbon Dioxide 27 mmol/L (23-31); Chloride 100 mmol/L (98-107); Estimated GFR 36; Glucose 100 mg/dL (83-110); Potassium 3.7 mmol/L (3.5-5.1); Sodium 138 mmol/L (136-145)
[2022-05-23 09:01] LABS: Bacteria/HPF None Seen HPF (None Seen); Bilirubin Negative (Negative); Blood, Urine Negative (Negative); CAUTI Indications for Culture Dysuria,urgency,freq; Clarity Clear (Clear); Glucose, Urine (Dipstick) Normal (Negative); Ketone, Urine Negative (Negative); Leukocyte Negative Leu/uL (Negative); Nitrite Negative (Negative); Protein, Urine (Dipstick) Negative (Neg-Trace); RBC/HPF 0-3 HPF (0-3); Specific Gravity, Urine 1.017 (1.002-1.036); Urobilinogen Normal mg/dL (Less than 2); WBC/HPF 0-3 HPF (0-3)
[2022-05-23 09:02] LABS: Urine Culture Reflex No No
[2022-05-23 09:29] LABS: Creatinine, Urine 101.22 mg/dL (47-110); Protein, Urine Random Quant Less than 10 mg/dL (1-14); Sodium, Urine Less than 20 mmol/L (Not Available); Urea Nitrogen, Random Urine 765 mg/dl
[2022-05-23] MEDS: traMADol HCl 50 MG TAB PO PRN (09:52)
[2022-05-23] MEDS: Apixaban 2.5 MG TAB PO SCH ×2 (09:52→20:44)
[2022-05-23 14:24] LABS: Free T4 (Free Thyroxine) 2.14 ng/dL (0.70-1.48)
[2022-05-23] MEDS: Gabapentin 100 MG CAP PO SCH ×2 (15:21→20:44)
[2022-05-23] MEDS ORDERED: Nitroglycerin 0.4 MG TAB (25 Tab Bottle) SL PRN (17:27)
[2022-05-23] MEDS: Atorvastatin Calcium 40 MG TAB PO SCH (20:43)
[2022-05-23] MEDS ORDERED: Torsemide 20 MG TAB PO SCH (21:00)
[2022-05-23] MEDS ORDERED: Potassium Chloride 20 MEQ TAB PO SCH (21:00)
[2022-05-23] MEDS ORDERED: Apixaban 5 MG TAB PO SCH (21:00)
[2022-05-23] MEDS ORDERED: Gabapentin 100 MG CAP PO SCH (21:00)
[2022-05-24 04:45] LABS: Anion Gap 11 mmol/L (10-20); BUN (Urea Nitrogen) 21 mg/dL (9.8-20.1); Calc. Creatinine Clearance 101 mL/min (70-130); Calcium 9.2 mg/dL (7.8-10.44); Carbon Dioxide 28 mmol/L (23-31); Chloride 102 mmol/L (98-107); Estimated GFR 60; Glucose 115 mg/dL (83-110); Potassium 3.7 mmol/L (3.5-5.1); Sodium 137 mmol/L (136-145)
[2022-05-24 04:50] LABS: #Eosinphils 0.1 thou/uL (0.0-0.7); #Monocytes 0.6 thou/uL (0.11-0.59); #Neutrophils 5.5 thou/uL (1.40-6.50); %Basophils 0.3 % (0.0-1.0); %Eosinophils 1.6 % (0.0-10.0); %Lymphocytes 13.3 % (21.0-51.0); %Monocytes 8.9 % (0.0-10.0); %Neutrophils 75.8 % (42.0-75.0); Hemoglobin 13.9 g/dL (12.0-16.0); Mean Corpuscular HGB CONC 31.4 g/dL (32.0-36.0); Mean Corpuscular Hemoglobin 29.2 pg (27.0-31.0); Mean Platelet Volume 7.7 fL (7.4-10.4); Platelet Count 188 10x3/uL (130-400); RBC Distribution Width 13.3 % (11.5-14.5); Red Blood Cell (RBC) Count 4.78 mill/uL (4.20-5.40); White Blood Cell (WBC) Count 7.2 10x3/uL (4.8-10.8)
[2022-05-24] MEDS: Levothyroxine 150 MCG TAB PO SCH (05:45)
[2022-05-24] MEDS: Carvedilol 3.125 MG TAB PO SCH ×2 (09:05→17:28)
[2022-05-24] MEDS: Amiodarone 200 MG TAB PO SCH (09:05)
[2022-05-24] MEDS: Apixaban 2.5 MG TAB PO SCH ×2 (09:05→21:05)
[2022-05-24] MEDS: Gabapentin 100 MG CAP PO SCH ×3 (10:49→21:05)
[2022-05-24] MEDS: Furosemide 40 MG/4 ML VIAL SLOW IVP SCH (14:02)
[2022-05-24] MEDS: Potassium Chloride 20 MEQ TAB PO SCH (17:27)
[2022-05-24] MEDS: Atorvastatin Calcium 40 MG TAB PO SCH (21:04)
[2022-05-24] MEDS ORDERED: Ipratropium/Albuterol 3 ML NEB NEB SCH (23:45)
[2022-05-25] MEDS: Furosemide 40 MG/4 ML VIAL SLOW IVP SCH ×2 (05:17→15:41)
[2022-05-25] MEDS: Levothyroxine 150 MCG TAB PO SCH (05:17)
[2022-05-25 05:38] LABS: Anion Gap 12 mmol/L (10-20); BUN (Urea Nitrogen) 16 mg/dL (9.8-20.1); Calc. Creatinine Clearance 108 mL/min (70-130); Calcium 9.5 mg/dL (7.8-10.44); Carbon Dioxide 31 mmol/L (23-31); Chloride 100 mmol/L (98-107); Estimated GFR 65; Glucose 112 mg/dL (83-110); Potassium 3.8 mmol/L (3.5-5.1); Sodium 139 mmol/L (136-145)
[2022-05-25] MEDS: Apixaban 2.5 MG TAB PO SCH ×2 (08:05→21:03)
[2022-05-25] MEDS: Gabapentin 100 MG CAP PO SCH ×3 (08:05→21:02)
[2022-05-25] MEDS: Carvedilol 3.125 MG TAB PO SCH ×2 (08:05→15:41)
[2022-05-25] MEDS: Amiodarone 200 MG TAB PO SCH (08:06)
[2022-05-25] MEDS: Potassium Chloride 20 MEQ TAB PO SCH ×2 (08:06→15:41)
[2022-05-25] MEDS: Ipratropium/Albuterol 3 ML NEB NEB SCH ×3 (14:29→23:20)
[2022-05-25] MEDS: Atorvastatin Calcium 40 MG TAB PO SCH (21:02)
[2022-05-26] MEDS: Levothyroxine 150 MCG TAB PO SCH (05:22)
[2022-05-26] MEDS: Furosemide 40 MG/4 ML VIAL SLOW IVP SCH ×2 (05:22→15:27)
[2022-05-26] MEDS: Ipratropium/Albuterol 3 ML NEB NEB SCH ×3 (06:32→18:34)
[2022-05-26] MEDS: Apixaban 2.5 MG TAB PO SCH ×2 (07:54→21:08)
[2022-05-26] MEDS: Carvedilol 3.125 MG TAB PO SCH ×2 (07:54→15:27)
[2022-05-26] MEDS: Gabapentin 100 MG CAP PO SCH ×3 (07:55→21:07)
[2022-05-26] MEDS: Potassium Chloride 20 MEQ TAB PO SCH ×2 (07:55→15:27)
[2022-05-26] MEDS: Amiodarone 200 MG TAB PO SCH (07:55)
[2022-05-26 08:07] LABS: Albumin 2.7 g/dL (3.4-4.8); Anion Gap 14 mmol/L (10-20); BUN (Urea Nitrogen) 17 mg/dL (9.8-20.1); Calc. Creatinine Clearance 114 mL/min (70-130); Calcium 9.1 mg/dL (7.8-10.44); Carbon Dioxide 27 mmol/L (23-31); Chloride 101 mmol/L (98-107); Estimated GFR 69; Glucose 102 mg/dL (83-110); Phosphorus 2.6 mg/dL (2.3-4.7); Sodium 138 mmol/L (136-145)
[2022-05-26] MEDS ORDERED: FLU VACC QS2022-23(65YR UP)/PF 240 MCG/0.7 ML SYRINGE IM ONE (09:00)
[2022-05-26] MEDS: Empagliflozin 10 MG TAB PO SCH (09:11)
[2022-05-26] MEDS: traMADol HCl 50 MG TAB PO PRN (09:41)
[2022-05-26] MEDS: Atorvastatin Calcium 40 MG TAB PO SCH (21:07)
[2022-05-27] MEDS: Ipratropium/Albuterol 3 ML NEB NEB SCH ×4 (00:13→18:29)
[2022-05-27 05:30] LABS: Anion Gap 11 mmol/L (10-20); BUN (Urea Nitrogen) 17 mg/dL (9.8-20.1); Calc. Creatinine Clearance 111 mL/min (70-130); Calcium 9.1 mg/dL (7.8-10.44); Carbon Dioxide 30 mmol/L (23-31); Chloride 100 mmol/L (98-107); Estimated GFR 67; Glucose 91 mg/dL (83-110); Potassium 4.4 mmol/L (3.5-5.1); Sodium 137 mmol/L (136-145)
[2022-05-27] MEDS: Levothyroxine 150 MCG TAB PO SCH (05:50)
[2022-05-27] MEDS: Furosemide 40 MG/4 ML VIAL SLOW IVP SCH ×2 (05:51→14:39)
[2022-05-27] MEDS ORDERED: Spironolactone 25 MG TAB PO SCH (09:00)
[2022-05-27] MEDS: Carvedilol 3.125 MG TAB PO SCH ×2 (10:19→16:27)
[2022-05-27] MEDS: Gabapentin 100 MG CAP PO SCH ×3 (10:20→21:29)
[2022-05-27] MEDS: Amiodarone 200 MG TAB PO SCH (10:20)
[2022-05-27] MEDS: Apixaban 2.5 MG TAB PO SCH ×2 (10:21→21:29)
[2022-05-27] MEDS: Empagliflozin 10 MG TAB PO SCH (10:24)
[2022-05-27] MEDS: Potassium Chloride 20 MEQ TAB PO SCH (10:25)
[2022-05-27] MEDS: Atorvastatin Calcium 40 MG TAB PO SCH (21:29)
[2022-05-28] MEDS: Ipratropium/Albuterol 3 ML NEB NEB SCH ×5 (00:02→23:21)
[2022-05-28] MEDS: Furosemide 40 MG/4 ML VIAL SLOW IVP SCH (05:33)
[2022-05-28] MEDS: Levothyroxine 150 MCG TAB PO SCH (05:33)
[2022-05-28 05:45] LABS: Albumin 2.7 g/dL (3.4-4.8); Anion Gap 12 mmol/L (10-20); BUN (Urea Nitrogen) 18 mg/dL (9.8-20.1); BUN/Creatinine Ratio 19.78; Calc. Creatinine Clearance 105 mL/min (70-130); Calcium 8.8 mg/dL (7.8-10.44); Carbon Dioxide 32 mmol/L (23-31); Chloride 97 mmol/L (98-107); Estimated GFR 64; Glucose 93 mg/dL (83-110); Potassium 4.1 mmol/L (3.5-5.1); Sodium 137 mmol/L (136-145)
[2022-05-28] MEDS: Amiodarone 200 MG TAB PO SCH (08:03)
[2022-05-28] MEDS: Carvedilol 3.125 MG TAB PO SCH ×2 (08:03→16:55)
[2022-05-28] MEDS: Spironolactone 25 MG TAB PO SCH (08:03)
[2022-05-28] MEDS: Empagliflozin 10 MG TAB PO SCH (08:03)
[2022-05-28] MEDS: Gabapentin 100 MG CAP PO SCH ×3 (08:03→20:44)
[2022-05-28] MEDS: Apixaban 2.5 MG TAB PO SCH ×2 (08:03→20:44)
[2022-05-28] MEDS: traMADol HCl 50 MG TAB PO PRN (09:51)
[2022-05-28] MEDS: Furosemide 40 MG TAB PO SCH (15:15)
[2022-05-28] MEDS: Atorvastatin Calcium 40 MG TAB PO SCH (20:44)
[2022-05-29] MEDS: Levothyroxine 150 MCG TAB PO SCH (05:53)
[2022-05-29] MEDS: Ipratropium/Albuterol 3 ML NEB NEB SCH ×3 (07:23→19:11)
[2022-05-29 08:04] LABS: #Eosinphils 0.3 thou/uL (0.0-0.7); #Lymphocytes 1.4 thou/uL (1.20-3.40); #Monocytes 0.7 thou/uL (0.11-0.59); #Neutrophils 3.9 thou/uL (1.40-6.50); %Basophils 0.5 % (0.0-1.0); %Eosinophils 4.7 % (0.0-10.0); %Lymphocytes 22.5 % (21.0-51.0); %Neutrophils 61.3 % (42.0-75.0); Mean Corpuscular HGB CONC 32.2 g/dL (32.0-36.0); Mean Corpuscular Hemoglobin 30.3 pg (27.0-31.0); Mean Corpuscular Volume 94.2 fl (78.0-98.0); Platelet Count 313 10x3/uL (130-400); RBC Distribution Width 13.1 % (11.5-14.5); Red Blood Cell (RBC) Count 3.94 mill/uL (4.20-5.40); White Blood Cell (WBC) Count 6.4 10x3/uL (4.8-10.8)
[2022-05-29 08:21] LABS: Anion Gap 11 mmol/L (10-20); BUN (Urea Nitrogen) 17 mg/dL (9.8-20.1); Calc. Creatinine Clearance 102 mL/min (70-130); Calcium 8.9 mg/dL (7.8-10.44); Carbon Dioxide 32 mmol/L (23-31); Chloride 97 mmol/L (98-107); Estimated GFR 63; Glucose 92 mg/dL (83-110); Potassium 3.7 mmol/L (3.5-5.1); Sodium 136 mmol/L (136-145)
[2022-05-29] MEDS: Empagliflozin 10 MG TAB PO SCH (08:30)
[2022-05-29] MEDS: Furosemide 40 MG TAB PO SCH ×2 (08:30→15:16)
[2022-05-29] MEDS: Amiodarone 200 MG TAB PO SCH (08:30)
[2022-05-29] MEDS: Spironolactone 25 MG TAB PO SCH (08:30)
[2022-05-29] MEDS: Carvedilol 3.125 MG TAB PO SCH ×2 (08:30→16:34)
[2022-05-29] MEDS: Gabapentin 100 MG CAP PO SCH ×3 (08:31→20:55)
[2022-05-29] MEDS: Apixaban 2.5 MG TAB PO SCH ×2 (08:36→20:54)
[2022-05-29] MEDS: Acetaminophen 325 MG TAB PO PRN (20:55)
[2022-05-29] MEDS: Atorvastatin Calcium 40 MG TAB PO SCH (20:55)
[2022-05-30] MEDS: Ipratropium/Albuterol 3 ML NEB NEB SCH ×3 (00:51→14:36)
[2022-05-30] MEDS: Levothyroxine 150 MCG TAB PO SCH (05:46)
[2022-05-30 08:02] VITALS: BP 111/63; TEMP 97.7
[2022-05-30] MEDS: Carvedilol 3.125 MG TAB PO SCH (08:28)
[2022-05-30] MEDS: Amiodarone 200 MG TAB PO SCH (08:28)
[2022-05-30] MEDS: Spironolactone 25 MG TAB PO SCH (08:28)
[2022-05-30] MEDS: Apixaban 2.5 MG TAB PO SCH (08:29)
[2022-05-30] MEDS: Empagliflozin 10 MG TAB PO SCH (08:29)
[2022-05-30] MEDS: Gabapentin 100 MG CAP PO SCH ×2 (08:29→14:59)
[2022-05-30] MEDS ORDERED: Furosemide 40 MG TAB PO SCH (09:00)
== END 2022-05-30 16:32 | disposition home health service (06) | DRG 682 ==
LOC: ERS 15:10 → 2SW 18:42 → OBSVTOIN 05-24 12:06 → T4-B 05-28 20:04
PROVIDERS: ADMIT Internal Medicine; ATTEND Internal Medicine
DX: N17.9 Acute kidney failure, unspecified (principal); I50.33 Acute on chronic diastolic (congestive) heart failure; E87.29 Other acidosis; Z68.42 Body mass index [BMI] 45.0-49.9, adult; I50.22 Chronic systolic (congestive) heart failure; I48.19 Other persistent atrial fibrillation; Z20.822 Contact with and (suspected) exposure to COVID-19; I89.0 Lymphedema, not elsewhere classified; I25.10 Atherosclerotic heart disease of native coronary artery without angina pectoris; E78.5 Hyperlipidemia, unspecified; I11.0 Hypertensive heart disease with heart failure; E66.01 Morbid (severe) obesity due to excess calories; I25.5 Ischemic cardiomyopathy; R53.81 Other malaise; Z88.0 Allergy status to penicillin; Z79.82 Long term (current) use of aspirin; Z79.899 Other long term (current) drug therapy; Z90.89 Acquired absence of other organs; Z82.49 Family history of ischemic heart disease and other diseases of the circulatory system
CPT/HCPCS: 36415; 71045; 80048; 80053; 80069; 81001; 82570; 83880; 84156; 84300; 84439; 84481; 84484; 84540; 85025; 87811; 93306; 93970; 94640; 96374; 96376; 97139; G0378; J1940; J2272; J7620; U0003; U0005

== ENCOUNTER 2022-05-31 00:12 | Inpatient (IN) | payer MEDICARE ==
[2022-05-31] MEDS ORDERED: Morphine 4 MG/ML VIAL ONE (00:51)
[2022-05-31 01:13] LABS: #Eosinphils 0.3 thou/uL (0.0-0.7); #Lymphocytes 1.6 thou/uL (1.20-3.40); #Monocytes 0.7 thou/uL (0.11-0.59); %Basophils 0.4 % (0.0-1.0); %Eosinophils 2.6 % (0.0-10.0); %Lymphocytes 15.1 % (21.0-51.0); %Neutrophils 74.9 % (42.0-75.0); Hemoglobin 13.4 g/dL (12.0-16.0); Mean Corpuscular HGB CONC 33.8 g/dL (32.0-36.0); Mean Corpuscular Hemoglobin 30.9 pg (27.0-31.0); Mean Corpuscular Volume 91.6 fl (78.0-98.0); Mean Platelet Volume 7.1 fL (7.4-10.4); Platelet Count 361 10x3/uL (130-400); RBC Distribution Width 13.2 % (11.5-14.5); Red Blood Cell (RBC) Count 4.34 mill/uL (4.20-5.40); White Blood Cell (WBC) Count 10.7 10x3/uL (4.8-10.8)
[2022-05-31 01:30] LABS: ALT (SGPT) 40 U/L (8-55); AST (SGOT) 37 U/L (5-34); Albumin 3.4 g/dL (3.4-4.8); Alkaline Phosphatase 83 U/L (40-110); Anion Gap 15 mmol/L (10-20); BUN (Urea Nitrogen) 19 mg/dL (9.8-20.1); Calc. Creatinine Clearance 0 mL/min (70-130); Calcium 9.9 mg/dL (7.8-10.44); Carbon Dioxide 30 mmol/L (23-31); Chloride 94 mmol/L (98-107); Estimated GFR 40; Glucose 117 mg/dL (83-110); Magnesium 2.1 mg/dL (1.6-2.6); Potassium 4.1 mmol/L (3.5-5.1); Protein, Total 7.4 g/dL (5.8-8.1); Sodium 135 mmol/L (136-145)
[2022-05-31] MEDS ORDERED: Ondansetron PF 4 MG/2 ML Vial IVP PRN (06:42)
[2022-05-31] MEDS ORDERED: Ipratropium/Albuterol 3 ML NEB EZPAP PRN (06:46)
[2022-05-31] MEDS ORDERED: Nitroglycerin 0.4 MG TAB (25 Tab Bottle) SL PRN (09:19)
[2022-05-31] MEDS: Apixaban 2.5 MG TAB PO SCH ×2 (09:38→21:58)
[2022-05-31] MEDS: Furosemide 40 MG TAB PO SCH (09:38)
[2022-05-31] MEDS ORDERED: Carvedilol 6.25 MG TAB PO SCH (10:15)
[2022-05-31] MEDS ORDERED: Amiodarone 200 MG TAB PO SCH (10:15)
[2022-05-31] MEDS ORDERED: Empagliflozin 10 MG TAB PO SCH (10:30)
[2022-05-31] MEDS ORDERED: Spironolactone 25 MG TAB PO SCH (10:30)
[2022-05-31] MEDS: Carvedilol 6.25 MG TAB PO SCH (17:20)
[2022-05-31] MEDS: Potassium Chloride 20 MEQ TAB PO SCH (21:58)
[2022-05-31] MEDS: Atorvastatin Calcium 40 MG TAB PO SCH (21:58)
[2022-06-01] MEDS: Levothyroxine 150 MCG TAB PO SCH (05:14)
[2022-06-01 06:36] LABS: #Basophils 0.1 thou/uL (0.0-0.2); #Eosinphils 0.3 thou/uL (0.0-0.7); #Lymphocytes 1.8 thou/uL (1.20-3.40); #Monocytes 0.6 thou/uL (0.11-0.59); #Neutrophils 4.1 thou/uL (1.40-6.50); %Basophils 0.8 % (0.0-1.0); %Lymphocytes 26.2 % (21.0-51.0); %Monocytes 8.9 % (0.0-10.0); %Neutrophils 59.1 % (42.0-75.0); Hemoglobin 11.4 g/dL (12.0-16.0); Mean Corpuscular HGB CONC 33.3 g/dL (32.0-36.0); Mean Corpuscular Hemoglobin 30.9 pg (27.0-31.0); Mean Platelet Volume 7.1 fL (7.4-10.4); Platelet Count 312 10x3/uL (130-400); RBC Distribution Width 13.6 % (11.5-14.5); Red Blood Cell (RBC) Count 3.69 mill/uL (4.20-5.40)
[2022-06-01 06:58] LABS: Anion Gap 12 mmol/L (10-20); BUN (Urea Nitrogen) 18 mg/dL (9.8-20.1); Calc. Creatinine Clearance 95 mL/min (70-130); Carbon Dioxide 28 mmol/L (23-31); Chloride 101 mmol/L (98-107); Estimated GFR 60; Glucose 88 mg/dL (83-110); Potassium 4.3 mmol/L (3.5-5.1); Sodium 137 mmol/L (136-145)
[2022-06-01] MEDS: Amiodarone 200 MG TAB PO SCH (08:52)
[2022-06-01] MEDS: Empagliflozin 10 MG TAB PO SCH (08:52)
[2022-06-01] MEDS: Potassium Chloride 20 MEQ TAB PO SCH ×2 (08:52→20:07)
[2022-06-01] MEDS: Furosemide 40 MG TAB PO SCH (08:52)
[2022-06-01] MEDS: Apixaban 2.5 MG TAB PO SCH ×2 (08:52→20:07)
[2022-06-01] MEDS: Spironolactone 25 MG TAB PO SCH (08:53)
[2022-06-01] MEDS: Carvedilol 6.25 MG TAB PO SCH ×2 (08:54→17:42)
[2022-06-01] MEDS: Atorvastatin Calcium 40 MG TAB PO SCH (20:07)
[2022-06-02 05:12] VITALS: BMI 46.0
[2022-06-02] MEDS: Levothyroxine 150 MCG TAB PO SCH (05:17)
[2022-06-02 05:30] LABS: #Basophils 0.1 thou/uL (0.0-0.2); #Eosinphils 0.4 thou/uL (0.0-0.7); #Lymphocytes 1.9 thou/uL (1.20-3.40); #Monocytes 0.8 thou/uL (0.11-0.59); #Neutrophils 3.9 thou/uL (1.40-6.50); %Basophils 0.9 % (0.0-1.0); %Eosinophils 5.9 % (0.0-10.0); %Lymphocytes 26.8 % (21.0-51.0); %Neutrophils 55.5 % (42.0-75.0); Hemoglobin 12.1 g/dL (12.0-16.0); Mean Corpuscular Hemoglobin 30.4 pg (27.0-31.0); Mean Corpuscular Volume 92.2 fl (78.0-98.0); Mean Platelet Volume 6.9 fL (7.4-10.4); Platelet Count 332 10x3/uL (130-400); RBC Distribution Width 13.4 % (11.5-14.5); Red Blood Cell (RBC) Count 3.99 mill/uL (4.20-5.40)
[2022-06-02 05:54] LABS: Anion Gap 13 mmol/L (10-20); BUN (Urea Nitrogen) 15 mg/dL (9.8-20.1); Calc. Creatinine Clearance 101 mL/min (70-130); Calcium 9.2 mg/dL (7.8-10.44); Carbon Dioxide 25 mmol/L (23-31); Chloride 101 mmol/L (98-107); Estimated GFR 66; Glucose 93 mg/dL (83-110); Potassium 4.5 mmol/L (3.5-5.1); Sodium 134 mmol/L (136-145)
[2022-06-02] MEDS: Potassium Chloride 20 MEQ TAB PO SCH ×2 (08:45→21:05)
[2022-06-02] MEDS: Spironolactone 25 MG TAB PO SCH (08:45)
[2022-06-02] MEDS: Amiodarone 200 MG TAB PO SCH (08:45)
[2022-06-02] MEDS: Carvedilol 6.25 MG TAB PO SCH ×2 (08:45→15:56)
[2022-06-02] MEDS: Apixaban 2.5 MG TAB PO SCH ×2 (08:45→21:05)
[2022-06-02] MEDS: Empagliflozin 10 MG TAB PO SCH (08:45)
[2022-06-02] MEDS: Furosemide 40 MG TAB PO SCH (08:45)
[2022-06-02] MEDS: Atorvastatin Calcium 40 MG TAB PO SCH (21:05)
[2022-06-03] MEDS: Levothyroxine 150 MCG TAB PO SCH (05:45)
[2022-06-03] MEDS: Amiodarone 200 MG TAB PO SCH (08:47)
[2022-06-03] MEDS: Spironolactone 25 MG TAB PO SCH (08:47)
[2022-06-03] MEDS: Carvedilol 6.25 MG TAB PO SCH ×2 (08:47→17:10)
[2022-06-03] MEDS: Potassium Chloride 20 MEQ TAB PO SCH ×2 (08:48→20:33)
[2022-06-03] MEDS: Furosemide 40 MG TAB PO SCH (08:48)
[2022-06-03] MEDS: Apixaban 2.5 MG TAB PO SCH ×2 (08:48→20:32)
[2022-06-03] MEDS: Empagliflozin 10 MG TAB PO SCH (08:48)
[2022-06-03] MEDS: Atorvastatin Calcium 40 MG TAB PO SCH (20:32)
[2022-06-03] MEDS: Acetaminophen 325 MG TAB PO PRN (20:33)
[2022-06-04] MEDS: Levothyroxine 150 MCG TAB PO SCH (05:45)
[2022-06-04] MEDS: Apixaban 2.5 MG TAB PO SCH ×2 (09:03→20:46)
[2022-06-04] MEDS: Potassium Chloride 20 MEQ TAB PO SCH ×2 (09:03→20:46)
[2022-06-04] MEDS: Carvedilol 6.25 MG TAB PO SCH ×2 (09:04→16:44)
[2022-06-04] MEDS: Empagliflozin 10 MG TAB PO SCH (09:04)
[2022-06-04] MEDS: Furosemide 40 MG TAB PO SCH (09:04)
[2022-06-04] MEDS: Spironolactone 25 MG TAB PO SCH (09:04)
[2022-06-04] MEDS: Amiodarone 200 MG TAB PO SCH (09:04)
[2022-06-04 09:21] LABS: Hemoglobin 13.5 g/dL (12.0-16.0); Platelet Count 357 10x3/uL (130-400)
[2022-06-04] MEDS: Acetaminophen 325 MG TAB PO PRN (20:45)
[2022-06-04] MEDS: Atorvastatin Calcium 40 MG TAB PO SCH (20:46)
[2022-06-05] MEDS: Levothyroxine 150 MCG TAB PO SCH (06:10)
[2022-06-05] MEDS: Carvedilol 6.25 MG TAB PO SCH ×2 (08:44→18:27)
[2022-06-05] MEDS: Empagliflozin 10 MG TAB PO SCH (08:45)
[2022-06-05] MEDS: Furosemide 40 MG TAB PO SCH (08:45)
[2022-06-05] MEDS: Apixaban 2.5 MG TAB PO SCH (08:45)
[2022-06-05] MEDS: Potassium Chloride 20 MEQ TAB PO SCH (08:45)
[2022-06-05] MEDS: Spironolactone 25 MG TAB PO SCH (08:45)
[2022-06-05] MEDS: Amiodarone 200 MG TAB PO SCH (08:45)
[2022-06-05 16:45] VITALS: BP 142/81; TEMP 97.6
== END 2022-06-05 18:15 | disposition home or self-care (01) | DRG 948 ==
LOC: ERS 00:12 → T4-B 04:27 → OBSVTOIN 06-02 12:57
PROVIDERS: ADMIT Internal Medicine; ATTEND Internal Medicine
DX: R53.1 Weakness (principal); G72.81 Critical illness myopathy; N17.9 Acute kidney failure, unspecified; I48.11 Longstanding persistent atrial fibrillation; Z68.42 Body mass index [BMI] 45.0-49.9, adult; I50.32 Chronic diastolic (congestive) heart failure; R60.9 Edema, unspecified; I11.0 Hypertensive heart disease with heart failure; I25.10 Atherosclerotic heart disease of native coronary artery without angina pectoris; I48.91 Unspecified atrial fibrillation; E78.5 Hyperlipidemia, unspecified; K42.9 Umbilical hernia without obstruction or gangrene; E66.01 Morbid (severe) obesity due to excess calories; E03.9 Hypothyroidism, unspecified; Z20.822 Contact with and (suspected) exposure to COVID-19; Z88.0 Allergy status to penicillin; Z79.01 Long term (current) use of anticoagulants; Z79.899 Other long term (current) drug therapy; Z90.49 Acquired absence of other specified parts of digestive tract
CPT/HCPCS: 36415; 71045; 72170; 80048; 80053; 83735; 83880; 85014; 85018; 85025; 85049; 94640; 96360; 97139; J2270; J7620; U0003; U0005

== ENCOUNTER 2024-04-16 12:23 | Inpatient (IN) | payer MEDICARE, OTHER ==
[2024-04-16 13:16] LABS: #Basophils 0.04 10x3/uL (0.0-0.2); %Basophils 0.7 % (0.0-1.0); %Eosinophils 3.4 % (0.0-10.0); %Lymphocytes 26.2 % (21.0-51.0); %Monocytes 8.6 % (0.0-10.0); %Neutrophils 60.9 % (42.0-75.0); Hemoglobin 10.9 g/dL (12.0-16.0); Mean Corpuscular HGB CONC 31.1 g/dL (32.0-36.0); Mean Corpuscular Hemoglobin 27.9 pg (27.0-31.0); Mean Corpuscular Volume 89.5 fL (78.0-98.0); Mean Platelet Volume 9.7 fL (7.4-10.4); Platelet Count 241 10x3/uL (130-400); RBC Distribution Width 16.3 % (11.5-14.5); Red Blood Cell (RBC) Count 3.91 mill/uL (4.20-5.40)
[2024-04-16 13:25] LABS: Bacteria/HPF None Seen HPF (None Seen); Bilirubin Negative (Negative); Blood, Urine Negative (Negative); CAUTI Indications for Culture Alt mental st,lethar; Clarity Clear (Clear); Glucose, Urine (Dipstick) Normal (Negative); Ketone, Urine Negative (Negative); Leukocyte Negative Leu/uL (Negative); Nitrite Negative (Negative); Protein, Urine (Dipstick) 30 mg/dL (Neg-Trace); RBC/HPF 0-3 HPF (0-3); Specific Gravity, Urine 1.029 (1.002-1.036); Squamous Epithelial 0-3 HPF (0-3); WBC/HPF 0-3 HPF (0-3)
[2024-04-16 13:26] LABS: Urine Culture Reflex No No
[2024-04-16 13:32] LABS: ALT (SGPT) 30 U/L (8-55); AST (SGOT) 34 U/L (5-34); Albumin 3.4 g/dL (3.4-4.8); Alkaline Phosphatase 81 U/L (40-110); Anion Gap 14 mmol/L (10-20); BUN (Urea Nitrogen) 19 mg/dL (9.8-20.1); Bilirubin, Total 0.6 mg/dL (0.2-1.2); Calc. Creatinine Clearance 0 mL/min (70-130); Calcium 8.7 mg/dL (7.8-10.44); Carbon Dioxide 22 mmol/L (23-31); Chloride 105 mmol/L (98-107); Estimated GFR 52; Globulin 3.2 g/dL (2.4-3.5); Glucose 109 mg/dL (83-110); Lipase 40 U/L (8-78); Protein, Total 6.6 g/dL (5.8-8.1); Sodium 137 mmol/L (136-145)
[2024-04-16 13:35] LABS: Troponin I Less than 0.010 ng/mL (< 0.028)
[2024-04-16] MEDS ORDERED: Acetaminophen 325 MG TAB PO PRN (17:05)
[2024-04-16] MEDS ORDERED: Senokot S 8.6-50 MG TAB PO PRN (17:05)
[2024-04-16] MEDS ORDERED: traMADol HCl 50 MG TAB PO PRN ×2 (17:05)
[2024-04-16 19:28] VITALS: BMI 56.7
[2024-04-16] MEDS: Apixaban 5 MG TAB PO SCH (21:00)
[2024-04-16] MEDS: Atorvastatin Calcium 40 MG TAB PO SCH (21:00)
[2024-04-17] MEDS: Levothyroxine 150 MCG TAB PO SCH (04:53)
[2024-04-17 05:15] LABS: #Basophils 0.03 10x3/uL (0.0-0.2); %Basophils 0.6 % (0.0-1.0); %Eosinophils 2.5 % (0.0-10.0); %Lymphocytes 22.5 % (21.0-51.0); %Monocytes 8.5 % (0.0-10.0); %Neutrophils 65.7 % (42.0-75.0); Hematocrit 32.6 % (36.0-47.0); Hemoglobin 10.3 g/dL (12.0-16.0); Mean Corpuscular HGB CONC 31.6 g/dL (32.0-36.0); Mean Corpuscular Hemoglobin 27.8 pg (27.0-31.0); Mean Corpuscular Volume 88.1 fL (78.0-98.0); Mean Platelet Volume 9.8 fL (7.4-10.4); Platelet Count 242 10x3/uL (130-400); RBC Distribution Width 16.3 % (11.5-14.5)
[2024-04-17 06:03] LABS: Anion Gap 9 mmol/L (10-20); BUN (Urea Nitrogen) 13 mg/dL (9.8-20.1); Calc. Creatinine Clearance 129 mL/min (70-130); Calcium 8.3 mg/dL (7.8-10.44); Carbon Dioxide 23 mmol/L (23-31); Chloride 109 mmol/L (98-107); Estimated GFR 71; Glucose 92 mg/dL (83-110); Potassium 3.9 mmol/L (3.5-5.1); Sodium 137 mmol/L (136-145)
[2024-04-17] MEDS: Polyethylene Glycol 3350 17 GM Packet PER TUBE SCH (08:50)
[2024-04-17] MEDS: Ezetimibe 10 MG TAB PO SCH (08:51)
[2024-04-17] MEDS: Amiodarone 200 MG TAB PO SCH (08:51)
[2024-04-17] MEDS: Empagliflozin 10 MG TAB PO SCH (08:51)
[2024-04-17] MEDS: Furosemide 40 MG (4 mL) VIAL SLOW IVP SCH (08:51)
[2024-04-17] MEDS: Carvedilol 6.25 MG TAB PO SCH (17:10)
[2024-04-18 05:20] LABS: #Basophils 0.03 10x3/uL (0.0-0.2); %Basophils 0.5 % (0.0-1.0); %Eosinophils 3.9 % (0.0-10.0); %Lymphocytes 24.3 % (21.0-51.0); %Monocytes 9.2 % (0.0-10.0); %Neutrophils 61.7 % (42.0-75.0); Hematocrit 33.8 % (36.0-47.0); Hemoglobin 10.8 g/dL (12.0-16.0); Mean Corpuscular Hemoglobin 27.8 pg (27.0-31.0); Mean Corpuscular Volume 87.1 fL (78.0-98.0); Mean Platelet Volume 9.5 fL (7.4-10.4); Platelet Count 235 10x3/uL (130-400); RBC Distribution Width 16.5 % (11.5-14.5); Red Blood Cell (RBC) Count 3.88 mill/uL (4.20-5.40)
[2024-04-18 05:42] LABS: Anion Gap 13 mmol/L (10-20); BUN (Urea Nitrogen) 13 mg/dL (9.8-20.1); Calc. Creatinine Clearance 101 mL/min (70-130); Calcium 8.3 mg/dL (7.8-10.44); Carbon Dioxide 24 mmol/L (23-31); Chloride 105 mmol/L (98-107); Estimated GFR 56; Glucose 91 mg/dL (83-110); Potassium 3.6 mmol/L (3.5-5.1); Sodium 138 mmol/L (136-145)
[2024-04-18] MEDS ORDERED: Iopamidol 370 76% 100 ML VIAL ONE (13:10)
[2024-04-18 18:55] VITALS: BMI 52.7
[2024-04-18] MEDS: Furosemide 40 MG (4 mL) VIAL SLOW IVP SCH (20:28)
[2024-04-19 04:16] LABS: #Basophils 0.04 10x3/uL (0.0-0.2); %Basophils 0.7 % (0.0-1.0); %Eosinophils 4.8 % (0.0-10.0); %Lymphocytes 24.5 % (21.0-51.0); %Monocytes 11.4 % (0.0-10.0); %Neutrophils 58.4 % (42.0-75.0); Hematocrit 34.7 % (36.0-47.0); Hemoglobin 10.8 g/dL (12.0-16.0); Mean Corpuscular HGB CONC 31.1 g/dL (32.0-36.0); Mean Corpuscular Hemoglobin 27.3 pg (27.0-31.0); Mean Corpuscular Volume 87.8 fL (78.0-98.0); Mean Platelet Volume 9.8 fL (7.4-10.4); Platelet Count 238 10x3/uL (130-400); RBC Distribution Width 16.4 % (11.5-14.5); Red Blood Cell (RBC) Count 3.95 mill/uL (4.20-5.40)
[2024-04-19 04:34] LABS: Anion Gap 15 mmol/L (10-20); BUN (Urea Nitrogen) 12 mg/dL (9.8-20.1); Calc. Creatinine Clearance 86 mL/min (70-130); Calcium 8.7 mg/dL (7.8-10.44); Carbon Dioxide 25 mmol/L (23-31); Chloride 101 mmol/L (98-107); Estimated GFR 46; Glucose 89 mg/dL (83-110); Potassium 3.6 mmol/L (3.5-5.1); Sodium 137 mmol/L (136-145)
[2024-04-20 09:03] LABS: Anion Gap 12 mmol/L (10-20); BUN (Urea Nitrogen) 15 mg/dL (9.8-20.1); Calc. Creatinine Clearance 79 mL/min (70-130); Calcium 8.8 mg/dL (7.8-10.44); Carbon Dioxide 32 mmol/L (23-31); Chloride 98 mmol/L (98-107); Estimated GFR 44; Glucose 94 mg/dL (83-110); Potassium 3.3 mmol/L (3.5-5.1); Sodium 139 mmol/L (136-145)
[2024-04-20] MEDS: Nystatin Cream 15 GM TUBE TOP SCH ×2 (12:50→21:42)
[2024-04-20] MEDS ORDERED: Electrolyte Replacement Protocol 1 EACH FS ONE (13:57)
[2024-04-20] MEDS ORDERED: Electrolyte Replacement Protocol FS PRN (14:00)
[2024-04-20] MEDS: Potassium Chloride 20 MEQ TAB PO SCH (14:53)
[2024-04-20] MEDS: Magnesium 2 GM/50 ML(in water) 2 GM in Premix 1 BAG IVPB SCH (16:29)
[2024-04-20 19:45] LABS: Potassium 4.1 mmol/L (3.5-5.1)
[2024-04-21 05:46] LABS: Anion Gap 11 mmol/L (10-20); BUN (Urea Nitrogen) 14 mg/dL (9.8-20.1); Calc. Creatinine Clearance 86 mL/min (70-130); Calcium 8.6 mg/dL (7.8-10.44); Carbon Dioxide 34 mmol/L (23-31); Chloride 97 mmol/L (98-107); Estimated GFR 50; Glucose 90 mg/dL (83-110); Magnesium 2.4 mg/dL (1.6-2.6); Potassium 3.5 mmol/L (3.5-5.1); Sodium 138 mmol/L (136-145)
[2024-04-21 08:07] VITALS: TEMP 97.7
[2024-04-21] MEDS: Potassium Chloride 20 MEQ TAB PO SCH (09:46)
[2024-04-21 12:08] VITALS: BP 129/59
== END 2024-04-21 17:28 | disposition home or self-care (01) | DRG 643 ==
LOC: ERS 12:23 → INTOOBSV 16:44 → 2NO 16:44 → OBSVTOIN 04-18 10:01
PROVIDERS: ADMIT Student in an Organized Health Care Education/Training Program; ATTEND Internal Medicine
DX: E03.9 Hypothyroidism, unspecified (principal); G93.41 Metabolic encephalopathy; J96.01 Acute respiratory failure with hypoxia; I50.33 Acute on chronic diastolic (congestive) heart failure; E66.2 Morbid (severe) obesity with alveolar hypoventilation; I48.20 Chronic atrial fibrillation, unspecified; I13.0 Hypertensive heart and chronic kidney disease with heart failure and stage 1 through stage 4 chronic kidney disease, or unspecified chronic kidney disease; Z68.42 Body mass index [BMI] 45.0-49.9, adult; K43.9 Ventral hernia without obstruction or gangrene; E78.5 Hyperlipidemia, unspecified; I87.2 Venous insufficiency (chronic) (peripheral); I89.0 Lymphedema, not elsewhere classified; R00.1 Bradycardia, unspecified; E11.22 Type 2 diabetes mellitus with diabetic chronic kidney disease; I25.10 Atherosclerotic heart disease of native coronary artery without angina pectoris; K59.00 Constipation, unspecified; N18.9 Chronic kidney disease, unspecified; Z88.0 Allergy status to penicillin; I25.2 Old myocardial infarction; Z79.890 Hormone replacement therapy; Z91.148 Patient's other noncompliance with medication regimen for other reason; Z79.82 Long term (current) use of aspirin; Z79.899 Other long term (current) drug therapy
CPT/HCPCS: 36415; 51702; 70450; 71045; 71275; 74176; 80048; 80053; 81001; 83605; 83690; 83735; 83880; 84439; 84443; 84484; 85025; 85379; 86141; 93005; 93306; 96360; 96361; 97139; G0378; J1940; J3475; Q9967

== ENCOUNTER 2025-01-28 11:17 | Inpatient (IN) | payer OTHER ==
[2025-01-28] MEDS ORDERED: Cefepime 2 GM VIAL ONE (11:47)
[2025-01-28 12:27] LABS: #Basophils 0.03 10x3/uL (0.0-0.2); #Eosinophils 1.55 10x3/uL (0.0-0.7); #Monocytes 0.96 10x3/uL (0.11-0.59); #Neutrophils 4.13 10x3/uL (1.40-6.50); %Basophils 0.4 % (0.0-1.0); %Eosinophils 19.7 % (0.0-10.0); %Lymphocytes 14.9 % (21.0-51.0); %Monocytes 12.2 % (0.0-10.0); %Neutrophils 52.5 % (42.0-75.0); Hematocrit 33.5 % (36.0-47.0); Hemoglobin 9.9 g/dL (12.0-16.0); Mean Corpuscular Hemoglobin 22.2 pg (27.0-31.0); Mean Corpuscular Volume 75.1 fL (78.0-98.0); Platelet Count 344 10x3/uL (130-400); Red Blood Cell (RBC) Count 4.46 mill/uL (4.20-5.40); White Blood Cell (WBC) Count 7.86 10x3/uL (4.8-10.8)
[2025-01-28 12:49] LABS: ALT (SGPT) 13 U/L (Less than 34); AST (SGOT) 22 U/L (11-34); Albumin 3.3 g/dL (3.1-4.5); Alkaline Phosphatase 112 U/L (40-110); Anion Gap 16 mmol/L (10-20); BUN (Urea Nitrogen) 16 mg/dL (9.8-20.1); Bilirubin, Total 1.1 mg/dL (0.3-1.2); Calc. Creatinine Clearance 0 mL/min (70-130); Calcium 9.1 mg/dL (7.8-10.44); Carbon Dioxide 29 mmol/L (23-31); Chloride 98 mmol/L (98-107); Globulin 3.8 g/dL (2.4-3.5); Glucose 102 mg/dL (83-110); Magnesium 2.1 mg/dL (1.6-2.6); Potassium 4.1 mmol/L (3.5-5.1); Sodium 139 mmol/L (136-145)
[2025-01-28] MEDS: Vancomycin (BATCH) 2.5 GM in Premix 1 BAG IVPB SCH (13:11)
[2025-01-28] MEDS ORDERED: Acetaminophen 325 MG TAB PO PRN (14:30)
[2025-01-28] MEDS ORDERED: Ondansetron PF 4 MG/2 ML Vial IVP PRN (14:30)
[2025-01-28] MEDS ORDERED: Melatonin 3 MG TAB PO PRN (14:30)
[2025-01-28] MEDS ORDERED: Senokot S 8.6-50 MG TAB PO PRN (14:30)
[2025-01-28] MEDS: cefTRIAXone\\ROCEPHIN 1 GM in Sodium Chloride 0.9% 100 ML IVPB SCH (17:53)
[2025-01-28] MEDS: Apixaban 2.5 MG TAB PO SCH (20:50)
[2025-01-28] MEDS: Carvedilol 3.125 MG TAB PO SCH (20:50)
[2025-01-29] MEDS: Levothyroxine 150 MCG TAB PO SCH (05:58)
[2025-01-29 06:48] LABS: Anion Gap 12 mmol/L (10-20); BUN (Urea Nitrogen) 13 mg/dL (9.8-20.1); Calc. Creatinine Clearance 86 mL/min (70-130); Calcium 8.5 mg/dL (7.8-10.44); Carbon Dioxide 27 mmol/L (23-31); Chloride 102 mmol/L (98-107); Glucose 91 mg/dL (83-110); Potassium 4.0 mmol/L (3.5-5.1); Sodium 137 mmol/L (136-145)
[2025-01-29 07:05] LABS: #Basophils Less than 0.03 10x3/uL (0.0-0.2); #Eosinophils 1.39 10x3/uL (0.0-0.7); #Monocytes 0.71 10x3/uL (0.11-0.59); #Neutrophils 3.72 10x3/uL (1.40-6.50); %Basophils 0.3 % (0.0-1.0); %Eosinophils 20.5 % (0.0-10.0); %Lymphocytes 13.8 % (21.0-51.0); %Monocytes 10.5 % (0.0-10.0); %Neutrophils 54.8 % (42.0-75.0); Hematocrit 35.0 % (36.0-47.0); Hemoglobin 9.8 g/dL (12.0-16.0); Mean Corpuscular Hemoglobin 21.4 pg (27.0-31.0); Mean Corpuscular Volume 76.6 fL (78.0-98.0); Platelet Count 346 10x3/uL (130-400); Red Blood Cell (RBC) Count 4.57 mill/uL (4.20-5.40); White Blood Cell (WBC) Count 6.79 10x3/uL (4.8-10.8)
[2025-01-29] MEDS: Amiodarone 200 MG TAB PO SCH (08:28)
[2025-01-29] MEDS: Torsemide 20 MG TAB PO SCH (08:28)
[2025-01-29] MEDS: Ezetimibe 10 MG TAB PO SCH (08:28)
[2025-01-29 11:05] LABS: Iron 33 ug/dL (50-170); Iron Binding Capacity, Total 295 mcg/dL (265-497)
[2025-01-29] MEDS: Rocuronium Bromide 10 MG/ML (10ML VIAL) ONE (16:44)
[2025-01-29] MEDS ORDERED: Vancomycin (BATCH) 2.5 GM/500 ML BAG IVPB SCH (17:00)
[2025-01-29] MEDS ORDERED: Propofol BOLUS 1,000 MG/100 ML VIAL IV PRN (18:00)
[2025-01-29] MEDS ORDERED: Fentanyl BOLUS 100 ML IVPB PRN (18:00)
[2025-01-29] MEDS ORDERED: DISCONTINUE PREVIOUS NARCOTIC PAIN MEDICATIONS AND BENZODIAZEPINES FS SCH (18:00)
[2025-01-29 18:35] LABS: Actual Bicarbonate (HCO3a) 27.5 mEq/L (22-28); Base Excess (BEa) 3.8 mEq/L (-2.0 to +3.0); CO2 Tension 38.3 mmHg (35.0-45.0); Calcium, Ionized (arterial) 1.12 mmol/L (1.12-1.30); Hematocrit-ABG 42 % (36.0-47.0); Hemoglobin (Hb) 14.3 g/dL (12.0-16.0); O2 Tension (PaO2), arterial 65.5 mmHg (> 60.0); Potassium - ABG Lab 3.45 mmol/L (3.70-5.30); pH, Arterial 7.474 (7.35-7.45)
[2025-01-29 18:40] LABS: ALV-art Gradient 314.425 mmHg (0-20); Puncture Site Right Radial artery
[2025-01-29 19:37] LABS: #Basophils Less than 0.03 10x3/uL (0.0-0.2); #Eosinophils 0.33 10x3/uL (0.0-0.7); #Monocytes 0.59 10x3/uL (0.11-0.59); #Neutrophils 8.04 10x3/uL (1.40-6.50); %Basophils 0.1 % (0.0-1.0); %Eosinophils 3.3 % (0.0-10.0); %Lymphocytes 8.7 % (21.0-51.0); %Monocytes 6.0 % (0.0-10.0); %Neutrophils 81.6 % (42.0-75.0); Hematocrit 44.4 % (36.0-47.0); Hemoglobin 12.6 g/dL (12.0-16.0); Mean Corpuscular Hemoglobin 21.6 pg (27.0-31.0); Mean Corpuscular Volume 76.3 fL (78.0-98.0); Platelet Count 407 10x3/uL (130-400); Red Blood Cell (RBC) Count 5.82 mill/uL (4.20-5.40); White Blood Cell (WBC) Count 9.86 10x3/uL (4.8-10.8)
[2025-01-29 19:56] LABS: ALT (SGPT) 9 U/L (Less than 34); AST (SGOT) 17 U/L (11-34); Albumin 2.6 g/dL (3.1-4.5); Alkaline Phosphatase 107 U/L (40-110); Anion Gap 18 mmol/L (10-20); BUN (Urea Nitrogen) 17 mg/dL (9.8-20.1); Bilirubin, Total 1.3 mg/dL (0.3-1.2); Calc. Creatinine Clearance 66 mL/min (70-130); Calcium 8.5 mg/dL (7.8-10.44); Carbon Dioxide 28 mmol/L (23-31); Chloride 99 mmol/L (98-107); Globulin 3.1 g/dL (2.4-3.5); Glucose 138 mg/dL (83-110); Magnesium 2.0 mg/dL (1.6-2.6); Potassium 3.9 mmol/L (3.5-5.1); Sodium 141 mmol/L (136-145)
[2025-01-29] MEDS: Vancomycin 1.5 GM / NS 500 ML VIAL-2-BAG IVPB SCH (20:34)
[2025-01-29] MEDS: Magnesium 2 GM/50 ML(in water) 2 GM in Premix 1 BAG IVPB SCH (20:45)
[2025-01-29] MEDS: Norepinephrine 8 MG/0.9% NS 250 ML IVPB SCH (22:51)
[2025-01-30 04:30] LABS: #Basophils Less than 0.03 10x3/uL (0.0-0.2); #Eosinophils 0.51 10x3/uL (0.0-0.7); #Monocytes 0.75 10x3/uL (0.11-0.59); #Neutrophils 8.94 10x3/uL (1.40-6.50); %Basophils 0.2 % (0.0-1.0); %Eosinophils 4.7 % (0.0-10.0); %Lymphocytes 6.3 % (21.0-51.0); %Monocytes 6.8 % (0.0-10.0); %Neutrophils 81.6 % (42.0-75.0); Hematocrit 39.7 % (36.0-47.0); Hemoglobin 11.7 g/dL (12.0-16.0); Mean Corpuscular Hemoglobin 21.7 pg (27.0-31.0); Mean Corpuscular Volume 73.7 fL (78.0-98.0); Platelet Count 399 10x3/uL (130-400); Red Blood Cell (RBC) Count 5.39 mill/uL (4.20-5.40); White Blood Cell (WBC) Count 10.95 10x3/uL (4.8-10.8)
[2025-01-30 04:37] LABS: Vancomycin, Random 28.5 ug/mL (See Comment)
[2025-01-30 04:40] LABS: Anion Gap 14 mmol/L (10-20); BUN (Urea Nitrogen) 19 mg/dL (9.8-20.1); Calc. Creatinine Clearance 61 mL/min (70-130); Calcium 8.2 mg/dL (7.8-10.44); Carbon Dioxide 28 mmol/L (23-31); Chloride 100 mmol/L (98-107); Glucose 131 mg/dL (83-110); Potassium 3.5 mmol/L (3.5-5.1); Sodium 138 mmol/L (136-145)
[2025-01-30 07:54] LABS: Actual Bicarbonate (HCO3a) 24.3 mEq/L (22-28); Base Excess (BEa) 2.8 mEq/L (-2.0 to +3.0); CO2 Tension 28.2 mmHg (35.0-45.0); Calcium, Ionized (arterial) 1.06 mmol/L (1.12-1.30); Hematocrit-ABG 37 % (36.0-47.0); Hemoglobin (Hb) 12.6 g/dL (12.0-16.0); O2 Tension (PaO2), arterial 63.8 mmHg (> 60.0); Potassium - ABG Lab 3.77 mmol/L (3.70-5.30); pH, Arterial 7.553 (7.35-7.45)
[2025-01-30 07:56] LABS: ALV-art Gradient 186.150 mmHg (0-20); Puncture Site Right Radial artery
[2025-01-30] MEDS: Pantoprazole 40 MG VIAL IVP SCH (09:09)
[2025-01-30] MEDS: Potassium Chloride 20 MEQ in Premix 1 BAG IVPB SCH (09:09)
[2025-01-30] MEDS: Furosemide 40 MG (4 mL) VIAL SLOW IVP SCH (09:44)
[2025-01-30 18:00] LABS: Potassium 4.3 mmol/L (3.5-5.1)
[2025-01-30] MEDS: Vancomycin 1 GM Premix Bag IVPB SCH (21:27)
[2025-01-31] MEDS: Albumin 25% 25 GM (100 mL) BOT IVPB SCH (00:59)
[2025-01-31 05:56] LABS: Vancomycin, Random 26.1 ug/mL (See Comment)
[2025-01-31 06:00] LABS: Anion Gap 12 mmol/L (10-20); BUN (Urea Nitrogen) 27 mg/dL (9.8-20.1); Calc. Creatinine Clearance 53 mL/min (70-130); Calcium 8.3 mg/dL (7.8-10.44); Carbon Dioxide 28 mmol/L (23-31); Chloride 101 mmol/L (98-107); Glucose 124 mg/dL (83-110); Potassium 3.7 mmol/L (3.5-5.1); Sodium 137 mmol/L (136-145)
[2025-01-31 06:33] LABS: #Basophils 0.03 10x3/uL (0.0-0.2); #Eosinophils 2.03 10x3/uL (0.0-0.7); #Monocytes 0.93 10x3/uL (0.11-0.59); #Neutrophils 7.27 10x3/uL (1.40-6.50); %Basophils 0.3 % (0.0-1.0); %Eosinophils 18.0 % (0.0-10.0); %Lymphocytes 8.8 % (21.0-51.0); %Monocytes 8.2 % (0.0-10.0); %Neutrophils 64.3 % (42.0-75.0); Hematocrit 29.9 % (36.0-47.0); Hemoglobin 8.9 g/dL (12.0-16.0); Mean Corpuscular Hemoglobin 21.8 pg (27.0-31.0); Mean Corpuscular Volume 73.3 fL (78.0-98.0); Platelet Count 323 10x3/uL (130-400); Red Blood Cell (RBC) Count 4.08 mill/uL (4.20-5.40); White Blood Cell (WBC) Count 11.30 10x3/uL (4.8-10.8)
[2025-01-31 06:46] LABS: Actual Bicarbonate (HCO3a) 25.9 mEq/L (22-28); Base Excess (BEa) 2.7 mEq/L (-2.0 to +3.0); CO2 Tension 34.8 mmHg (35.0-45.0); Calcium, Ionized (arterial) 1.10 mmol/L (1.12-1.30); Hematocrit-ABG 30 % (36.0-47.0); Hemoglobin (Hb) 10.2 g/dL (12.0-16.0); O2 Tension (PaO2), arterial 80.4 mmHg (> 60.0); Potassium - ABG Lab 3.85 mmol/L (3.70-5.30); pH, Arterial 7.490 (7.35-7.45)
[2025-01-31 06:59] LABS: Puncture Site RR
[2025-01-31 07:00] LABS: ALV-art Gradient 161.300 mmHg (0-20)
[2025-01-31] MEDS: FLU (Fluad Triv) 25-26 (65UP)PF 45 MCG/0.5 ML Syringe IM ONE (15:38)
[2025-01-31] MEDS: PNEUMOC 20-VAL CONJ-DIP CRM/PF 0.5 ML SYRINGE IM ONE (15:39)
[2025-02-01 04:15] LABS: Hematocrit 31.6 % (36.0-47.0); Hemoglobin 8.9 g/dL (12.0-16.0); Mean Corpuscular Hemoglobin 21.7 pg (27.0-31.0); Mean Corpuscular Volume 77.1 fL (78.0-98.0); Platelet Count 282 10x3/uL (130-400); Red Blood Cell (RBC) Count 4.10 mill/uL (4.20-5.40); White Blood Cell (WBC) Count 10.50 10x3/uL (4.8-10.8)
[2025-02-01 04:32] LABS: Vancomycin, Random 20.9 ug/mL (See Comment)
[2025-02-01 04:33] LABS: Anion Gap 10 mmol/L (10-20); BUN (Urea Nitrogen) 23 mg/dL (9.8-20.1); Calc. Creatinine Clearance 62 mL/min (70-130); Calcium 8.4 mg/dL (7.8-10.44); Carbon Dioxide 29 mmol/L (23-31); Chloride 102 mmol/L (98-107); Glucose 94 mg/dL (83-110); Potassium 3.8 mmol/L (3.5-5.1); Sodium 137 mmol/L (136-145)
[2025-02-01 04:37] VITALS: BMI 49.7
[2025-02-01 05:05] LABS: Microcytosis SLIGHT = 6-15 cells HPF (0-5); Platelet Adequacy Comment Platelets Normal; Polychromasia SLIGHT = 2-3 cells HPF (0-2); Smudge Cells 1.0 %
[2025-02-01] MEDS: Oxybutynin 5 MG TAB PO SCH (06:40)
[2025-02-01 07:45] LABS: Actual Bicarbonate (HCO3a) 29.4 mEq/L (22-28); Base Excess (BEa) 3.6 mEq/L (-2.0 to +3.0); CO2 Tension 50.4 mmHg (35.0-45.0); Calcium, Ionized (arterial) 1.16 mmol/L (1.12-1.30); Hematocrit-ABG 30 % (36.0-47.0); Hemoglobin (Hb) 10.3 g/dL (12.0-16.0); O2 Tension (PaO2), arterial 70.4 mmHg (> 60.0); Potassium - ABG Lab 3.88 mmol/L (3.70-5.30); pH, Arterial 7.384 (7.35-7.45)
[2025-02-01 07:49] LABS: ALV-art Gradient 94.760 mmHg (0-20); Puncture Site RR
[2025-02-01] MEDS: Furosemide 20 MG (2 mL) VIAL SLOW IVP SCH (18:00)
[2025-02-01] MEDS: Vancomycin 1.25 GM / NS 250 ML VIAL-2-BAG IVPB SCH (20:57)
[2025-02-02 10:56] LABS: Hematocrit 34.7 % (36.0-47.0); Hemoglobin 9.9 g/dL (12.0-16.0); Mean Corpuscular Hemoglobin 22.2 pg (27.0-31.0); Mean Corpuscular Volume 78.0 fL (78.0-98.0); Platelet Count 217 10x3/uL (130-400); Red Blood Cell (RBC) Count 4.45 mill/uL (4.20-5.40); White Blood Cell (WBC) Count 7.61 10x3/uL (4.8-10.8)
[2025-02-02 11:07] LABS: ALT (SGPT) 14 U/L (Less than 34); AST (SGOT) 42 U/L (11-34); Albumin 2.7 g/dL (3.1-4.5); Alkaline Phosphatase 81 U/L (40-110); Anion Gap 11 mmol/L (10-20); BUN (Urea Nitrogen) 21 mg/dL (9.8-20.1); Bilirubin, Total 0.8 mg/dL (0.3-1.2); Calc. Creatinine Clearance 75 mL/min (70-130); Calcium 8.8 mg/dL (7.8-10.44); Carbon Dioxide 26 mmol/L (23-31); Chloride 103 mmol/L (98-107); Globulin 3.5 g/dL (2.4-3.5); Glucose 98 mg/dL (83-110); Potassium 4.4 mmol/L (3.5-5.1); Sodium 136 mmol/L (136-145)
[2025-02-02 11:08] LABS: Vancomycin, Random 19.7 ug/mL (See Comment)
[2025-02-02 11:23] LABS: Anisocytosis SLIGHT = 6-15 cells HPF (0-5); Burr Cells MODERATE= 6-15 cells HPF (0-1); Macrocytosis SLIGHT = 6-15 cells HPF (0-5); Microcytosis SLIGHT = 6-15 cells HPF (0-5); Platelet Adequacy Comment Platelets Normal; Poikilocytosis SLIGHT = 6-15 cells HPF (0-5); Polychromasia MODERATE = 3-4 cells HPF (0-2); Schistocytes SLIGHT = 2-5 cells HPF (0-1)
[2025-02-02] MEDS: Furosemide 20 MG (2 mL) VIAL SLOW IVP SCH (14:26)
[2025-02-03 09:02] LABS: Hematocrit 32.3 % (36.0-47.0); Hemoglobin 9.3 g/dL (12.0-16.0); Mean Corpuscular Hemoglobin 22.2 pg (27.0-31.0); Mean Corpuscular Volume 77.1 fL (78.0-98.0); Platelet Count 278 10x3/uL (130-400); Red Blood Cell (RBC) Count 4.19 mill/uL (4.20-5.40); White Blood Cell (WBC) Count 9.22 10x3/uL (4.8-10.8)
[2025-02-03 09:32] LABS: Microcytosis SLIGHT = 6-15 cells HPF (0-5); Platelet Adequacy Comment Platelets Normal; Polychromasia SLIGHT = 2-3 cells HPF (0-2)
[2025-02-03 12:49] LABS: Albumin 2.5 g/dL (3.1-4.5); Calcium 8.7 mg/dL (7.8-10.44); Chloride 100 mmol/L (98-107); Potassium 3.5 mmol/L (3.5-5.1); Sodium 142 mmol/L (136-145)
[2025-02-03 12:50] LABS: Globulin 3.2 g/dL (2.4-3.5); Glucose 86 mg/dL (83-110)
[2025-02-03 12:51] LABS: Anion Gap 15 mmol/L (10-20); Carbon Dioxide 31 mmol/L (23-31)
[2025-02-03 12:53] LABS: Alkaline Phosphatase 73 U/L (40-110); Bilirubin, Total 0.6 mg/dL (0.3-1.2)
[2025-02-03 12:54] LABS: BUN (Urea Nitrogen) 16 mg/dL (9.8-20.1); Calc. Creatinine Clearance 79 mL/min (70-130)
[2025-02-03 12:56] LABS: ALT (SGPT) 18 U/L (Less than 34); AST (SGOT) 33 U/L (11-34)
[2025-02-04 07:47] LABS: #Basophils Less than 0.03 10x3/uL (0.0-0.2); #Eosinophils 0.77 10x3/uL (0.0-0.7); #Monocytes 0.65 10x3/uL (0.11-0.59); #Neutrophils 4.90 10x3/uL (1.40-6.50); %Basophils 0.3 % (0.0-1.0); %Eosinophils 10.0 % (0.0-10.0); %Lymphocytes 16.9 % (21.0-51.0); %Monocytes 8.5 % (0.0-10.0); %Neutrophils 63.8 % (42.0-75.0); Hematocrit 32.7 % (36.0-47.0); Hemoglobin 9.4 g/dL (12.0-16.0); Mean Corpuscular Hemoglobin 21.7 pg (27.0-31.0); Mean Corpuscular Volume 75.3 fL (78.0-98.0); Platelet Count 299 10x3/uL (130-400); Red Blood Cell (RBC) Count 4.34 mill/uL (4.20-5.40); White Blood Cell (WBC) Count 7.68 10x3/uL (4.8-10.8)
[2025-02-04 07:57] LABS: ALT (SGPT) 19 U/L (Less than 34); AST (SGOT) 25 U/L (11-34); Albumin 2.5 g/dL (3.1-4.5); Alkaline Phosphatase 76 U/L (40-110); Anion Gap 11 mmol/L (10-20); BUN (Urea Nitrogen) 17 mg/dL (9.8-20.1); Bilirubin, Total 0.7 mg/dL (0.3-1.2); Calc. Creatinine Clearance 68 mL/min (70-130); Calcium 8.4 mg/dL (7.8-10.44); Carbon Dioxide 31 mmol/L (23-31); Chloride 100 mmol/L (98-107); Globulin 3.1 g/dL (2.4-3.5); Glucose 92 mg/dL (83-110); Potassium 3.7 mmol/L (3.5-5.1); Sodium 138 mmol/L (136-145)
[2025-02-04 08:23] LABS: Burr Cells SLIGHT = 2-5 cells HPF (0-1); Macrocytosis SLIGHT = 6-15 cells HPF (0-5); Platelet Adequacy Comment Platelets Normal; Polychromasia SLIGHT = 2-3 cells HPF (0-2)
[2025-02-05 05:43] LABS: Hematocrit 30.1 % (36.0-47.0); Hemoglobin 8.9 g/dL (12.0-16.0); Mean Corpuscular Hemoglobin 22.1 pg (27.0-31.0); Mean Corpuscular Volume 74.7 fL (78.0-98.0); Platelet Count 242 10x3/uL (130-400); Red Blood Cell (RBC) Count 4.03 mill/uL (4.20-5.40); White Blood Cell (WBC) Count 8.01 10x3/uL (4.8-10.8)
[2025-02-05 06:00] LABS: ALT (SGPT) 16 U/L (Less than 34); AST (SGOT) 23 U/L (11-34); Albumin 2.3 g/dL (3.1-4.5); Alkaline Phosphatase 64 U/L (40-110); Anion Gap 9 mmol/L (10-20); BUN (Urea Nitrogen) 18 mg/dL (9.8-20.1); Bilirubin, Total 0.7 mg/dL (0.3-1.2); Calc. Creatinine Clearance 77 mL/min (70-130); Calcium 8.5 mg/dL (7.8-10.44); Carbon Dioxide 34 mmol/L (23-31); Chloride 97 mmol/L (98-107); Globulin 3.0 g/dL (2.4-3.5); Glucose 97 mg/dL (83-110); Potassium 3.4 mmol/L (3.5-5.1); Sodium 137 mmol/L (136-145)
[2025-02-05 06:06] LABS: Anisocytosis SLIGHT = 6-15 cells HPF (0-5); Microcytosis SLIGHT = 6-15 cells HPF (0-5); Platelet Adequacy Comment Platelets Normal; Smudge Cells 12.0 %
[2025-02-05] MEDS: Pantoprazole 40 MG DR.TAB PO SCH (09:55)
[2025-02-06 07:54] LABS: Anion Gap 12 mmol/L (10-20); BUN (Urea Nitrogen) 17 mg/dL (9.8-20.1); Calc. Creatinine Clearance 83 mL/min (70-130); Calcium 8.6 mg/dL (7.8-10.44); Carbon Dioxide 33 mmol/L (23-31); Chloride 97 mmol/L (98-107); Glucose 94 mg/dL (83-110); Potassium 3.9 mmol/L (3.5-5.1); Sodium 138 mmol/L (136-145)
[2025-02-08] MEDS: Furosemide 40 MG TAB PO SCH (08:40)
[2025-02-09 08:00] LABS: Anion Gap 13 mmol/L (10-20); BUN (Urea Nitrogen) 14 mg/dL (9.8-20.1); Calc. Creatinine Clearance 79 mL/min (70-130); Calcium 8.9 mg/dL (7.8-10.44); Carbon Dioxide 32 mmol/L (23-31); Chloride 98 mmol/L (98-107); Glucose 91 mg/dL (83-110); Potassium 4.1 mmol/L (3.5-5.1); Sodium 139 mmol/L (136-145)
[2025-02-09 21:12] VITALS: BMI 49.5
[2025-02-14 06:05] LABS: #Basophils 0.07 10x3/uL (0.0-0.2); #Eosinophils 1.26 10x3/uL (0.0-0.7); #Monocytes 0.68 10x3/uL (0.11-0.59); #Neutrophils 3.02 10x3/uL (1.40-6.50); %Basophils 1.1 % (0.0-1.0); %Eosinophils 19.3 % (0.0-10.0); %Lymphocytes 22.7 % (21.0-51.0); %Monocytes 10.4 % (0.0-10.0); %Neutrophils 46.3 % (42.0-75.0); Hematocrit 33.8 % (36.0-47.0); Hemoglobin 10.1 g/dL (12.0-16.0); Mean Corpuscular Hemoglobin 22.4 pg (27.0-31.0); Mean Corpuscular Volume 74.9 fL (78.0-98.0); Platelet Count 357 10x3/uL (130-400); Red Blood Cell (RBC) Count 4.51 mill/uL (4.20-5.40); White Blood Cell (WBC) Count 6.52 10x3/uL (4.8-10.8)
[2025-02-14 06:21] LABS: Anion Gap 11 mmol/L (10-20); BUN (Urea Nitrogen) 18 mg/dL (9.8-20.1); Calc. Creatinine Clearance 91 mL/min (70-130); Calcium 9.2 mg/dL (7.8-10.44); Carbon Dioxide 33 mmol/L (23-31); Chloride 99 mmol/L (98-107); Glucose 89 mg/dL (83-110); Potassium 3.7 mmol/L (3.5-5.1); Sodium 139 mmol/L (136-145)
[2025-02-14 08:14] VITALS: BP 121/61; TEMP 97.6
== END 2025-02-14 19:50 | DRG 871 ==
LOC: ERS 11:17 → ERHOLD 13:33 → T4-A 15:54 → OBSVTOIN 01-29 13:42 → CCU 01-29 17:19 → T4-B 02-01 14:22
PROVIDERS: ADMIT Hospitalist; ATTEND Hospitalist
PROC: 4A133R1 Monitoring of Arterial Saturation, Peripheral, Percutaneous Approach (ICD-10-PCS; principal; 2025-01-29)
PROC: 3E033XZ Introduction of Vasopressor into Peripheral Vein, Percutaneous Approach (ICD-10-PCS; 2025-01-29)
PROC: 3E03329 Introduction of Other Anti-infective into Peripheral Vein, Percutaneous Approach (ICD-10-PCS; 2025-01-29)
PROC: 0T9B70Z Drainage of Bladder with Drainage Device, Via Natural or Artificial Opening (ICD-10-PCS; 2025-01-29)
PROC: 3E02340 Introduction of Influenza Vaccine into Muscle, Percutaneous Approach (ICD-10-PCS; 2025-01-31)
PROC: 3E0234Z Introduction of Serum, Toxoid and Vaccine into Muscle, Percutaneous Approach (ICD-10-PCS; 2025-01-31)
PROC: 30233J1 Transfusion of Nonautologous Serum Albumin into Peripheral Vein, Percutaneous Approach (ICD-10-PCS; 2025-01-31)
DX: A41.02 Sepsis due to Methicillin resistant Staphylococcus aureus (principal); G93.41 Metabolic encephalopathy; I50.33 Acute on chronic diastolic (congestive) heart failure; J96.01 Acute respiratory failure with hypoxia; R65.21 Severe sepsis with septic shock; L03.115 Cellulitis of right lower limb; I13.0 Hypertensive heart and chronic kidney disease with heart failure and stage 1 through stage 4 chronic kidney disease, or unspecified chronic kidney disease; N17.9 Acute kidney failure, unspecified; L03.116 Cellulitis of left lower limb; E03.9 Hypothyroidism, unspecified; G47.33 Obstructive sleep apnea (adult) (pediatric); I89.0 Lymphedema, not elsewhere classified; F17.210 Nicotine dependence, cigarettes, uncomplicated; N18.30 Chronic kidney disease, stage 3 unspecified; I48.0 Paroxysmal atrial fibrillation; E66.01 Morbid (severe) obesity due to excess calories; I87.2 Venous insufficiency (chronic) (peripheral); D63.1 Anemia in chronic kidney disease; I25.2 Old myocardial infarction; Z88.0 Allergy status to penicillin; Z79.899 Other long term (current) drug therapy; Z79.890 Hormone replacement therapy; Z79.01 Long term (current) use of anticoagulants; Z90.89 Acquired absence of other organs
CPT/HCPCS: 36415; 36416; 36600; 70450; 71045; 74018; 80048; 80053; 80202; 82728; 82805; 83540; 83550; 83605; 83735; 83880; 84100; 84484; 85025; 87040; 87077; 87149; 87186; 93005; 94002; 94003; 94640; 96365; 96375; 97139; G0378; J0692; J0696; J1940; J2470; J3010; J3373; J3475; J3480; J7030; J7050; P9047